=== PATIENT | male | born 1995 | race Caucasian/White ===

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

== ENCOUNTER 2017-02-09 17:22 | Inpatient (IN) ==
[2017-02-09 17:39] LABS: Bilirubin,Urine Negative (Negative); Blood,Urine Negative (Negative); Clarity,Urine Turbid (Clear); Color,Urine Yellow (Yellow); Glucose,Urine (UA) Normal (Normal); Ketones,Urine Negative (Negative); Leukocyte Esterase,Urine Small (Negative); Nitrite,Urine Negative (Negative); PH,Urine 7.5 pH Units (5.0-8.0); Protein,Urine Trace mg/dL (Neg-Trace); Specific Gravity,Urine 1.025 (1.010-1.025); Urobilinogen,Urine Normal (Normal)
--- NOTE | 2017-02-09 17:44 | Emergency Department Note ---
Disposition Clinical Impression: Suicidal ideation Disposition: Admitted As Inpatient Condition: Fair Referrals: NONE,PCP [Primary Care Provider] - Forms: ED Satisfaction Letter Time of Disposition: 19:56 Psych HPI - General Chief Complaint: ED Psychiatric Symptoms Stated Complaint: SI Time Seen by Provider: 02/09/17 17:36 Source: patient, family Limitations: no limitations Nursing Notes Reviewed: Yes Vital Signs Reviewed: Yes - History of Present Illness HPI Narrative: Previous suicidal ideation, depression, anxiety since running out of his Seroquel one month ago. Pt complaint: suicidal ideation, feels depressed, anxiety Onset (ago): day(s) Duration: constant History of similar episodes: Yes Improves with: none Worsens with: none Context: recent drug abuse Alleged intoxication: No Associated Psychiatric Symptoms: depression, suicidal ideation, anxiety Associated symptoms: Reports: denies other symptoms Traumatic symptoms: denies traumatic injury Treatments prior to arrival: none Self harm or harm to others: admits thoughts of self harm - Related Data Previous Rx's Medication Instructions Recorded hydrOXYzine pamoate [HydrOXYzine 25 mg PO TID PRN #90 capsule 10/23/16 Pamoate] Quetiapine Fumarate [Seroquel] 100 mg PO HS #14 tablet 11/23/16 Allergies Allergy/AdvReac Type Severity Reaction Status Date / Time bee venom protein (honey bee) Allergy Anaphylaxis Verified 02/09/17 17:27 shellfish derived Allergy Swelling Verified 11/18/16 13:59 of Lip/Tongue/Throat All systems ED: reviewed and negative except as stated. Constitutional: Reports: as per HPI Eyes: Reports: as per HPI ENT ED: Reports: as per HPI Cardiovascular: Reports: as per HPI Respiratory: Reports: as per HPI Gastrointestinal: Reports: as per HPI Genitourinary: Reports: as per HPI Musculoskeletal: Reports: as per HPI Integumentary: Reports: as per HPI Neurological: Reports: as per HPI Psychiatric: Reports: anxiety, depression, suicidal thoughts Endocrine: Reports: as per HPI Hematological/Lymphatic: Reports: as per HPI Allergic/Immunologic: Reports: as per HPI Past Medical History - Past Medical History Source: patient Medical history: Reports: no medical history Surgical history: Reports: no surgical history Psychiatric history: Reports: depression, prior suicide attempt, schizophrenia, previous psychiatric hospitalization - Social History Smoking Status: Current every day smoker Smokeless Tobacco Status: No Alcohol use: Reports: occasionally Drug use: Reports: cocaine, opiates, marijuana, methamphetamine Physical Exam - General Limitations: no limitations General appearance: alert - Head Head exam: atraumatic - Eye Eye exam: Present: normal appearance, PERRL - ENT ENT exam: normal exam - Neck Neck exam: Present: normal inspection, full ROM - Chest Chest inspection: Present: normal inspection, symmetric chest wall rise - Respiratory Respiratory exam: Present: normal lung sounds bilaterally - Cardiovascular Cardiovascular exam: Present: tachycardia, normal heart sounds - Rectal Exam Rectal exam: Present: deferred - Extremities Exam Extremities exam: Present: normal inspection - Neurological Exam Neurological exam: Present: alert, oriented X3, CN II-XII intact - Psychiatric Psychiatric exam: Present: normal affect, normal mood - Skin Skin exam: Present: warm, dry, intact Course Course Narrative: Patient presents feeling suicidal. I will attempt to clear him medically for behavioral evaluation - Reevaluation(s) Reevaluation #1: cleared medically for 1A eval Vital Signs Temperature 98.2 F 02/09/17 17:27 Pulse Rate 106 02/09/17 17:27 Respiratory Rate 20 02/09/17 17:27 Blood Pressure 125/88 02/09/17 17:27 O2 Sat by Pulse Oximetry 97 02/09/17 17:27 Temperature 98.2 F 02/09/17 17:27 Pulse Rate 106 02/09/17 17:27 Respiratory Rate 20 02/09/17 17:27 Blood Pressure 125/88 02/09/17 17:27 O2 Sat by Pulse Oximetry 97 02/09/17 17:27 Oxygen Delivery Oxygen Delivery Room Air Psych - Lab Data Result diagrams: 02/09/17 17:45 02/09/17 17:45 Lab Results 02/09/17 02/09/17 02/09/17 Range/Units 17:30 17:30 17:45 WBC 8.2 (4.3-11.1) K/mcL RBC 5.59 H (4.19-5.50) M/mcL Hgb 15.6 (12.9-16.9) g/dL Hct 47.7 (37.5-50.1) % MCV 85.3 (83.0-100.0) fL MCH 27.9 L (28.0-33.3) pg MCHC 32.7 (31.6-35.5) g/dL RDW 13.2 (11.5-14.5) % Plt Count 205 (140-400) K/mcL MPV 9.5 (9.4-12.4) fL Immature Gran % 0.2 (0-4) % Seg Neutrophils % 66.8 % Lymphocytes % 24.5 % Monocytes % 5.7 % Eosinophils % 2.3 % Basophils % 0.5 % Neutrophils # 5.5 (1.6-8.9) K/mcL Lymphocytes # 2.0 (0.6-4.6) K/mcL Monocytes # 0.5 (0.0-1.3) K/mcL Eosinophils # 0.2 (0.0-0.6) K/mcL Basophils # 0.0 (0.0-0.2) K/mcL Sodium (136-145) mEq/L Potassium (3.5-4.5) mEq/L Chloride (98-109) mEq/L Carbon Dioxide (19-29) mEq/L BUN (8-26) mg/dL Creatinine (0.72-1.25) mg/dL Est GFR ( Amer) Est GFR (Non-Af Amer) BUN/Creatinine Ratio (6-26) Glucose (70-99) mg/dL Calculated Osmolality (280-300) Calcium (8.6-10.8) mg/dL Total Bilirubin (0.2-1.2) mg/dL AST (5-34) Units/L ALT (0-55) Units/L Alkaline Phosphatase (38-126) Units/L Serum Total Protein (6.0-8.3) g/dL Albumin (3.5-5.0) g/dL Globulin (2.4-3.5) g/dL Albumin/Globulin Ratio (1.1-2.2) Urine Color Yellow (Yellow) Urine Clarity Turbid A (Clear) Urine pH 7.5 (5.0-8.0) pH Units Ur Specific [place] 1.025 (1.010-1.025) Urine Protein Trace (Neg-Trace) mg/dL Urine Glucose (UA) Normal (Normal) mg/dL Urine Ketones Negative (Negative) mg/dL Urine Blood Negative (Negative) Urine Nitrite Negative (Negative) Urine Bilirubin Negative (Negative) Urine Urobilinogen Normal (Normal) mg/dL Ur Leukocyte Esterase Small H (Negative) Urine Microscopic RBC 0-3 (0-3) per hpf Urine Microscopic WBC 5-15 H (0-3) per hpf Ur Squamous Epith Cells Few (None-Few) per lpf Amorphous Sediment Many H (Few) Urine Bacteria Few (None-Few) per hpf Ur Culture Indicated? YES A (NO) Salicylates (15-30) mg/dL Urine Opiates Screen Negative (Gfxyra=505) ng/mL Acetaminophen (10-30) mcg/mL Ur Barbiturates Screen Negative (Magbib=703) ng/mL Ur Phencyclidine Scrn Negative (Cutoff=25) ng/mL Ur Amphetamines Screen Negative (Eijdsh=0046) ng/mL U Benzodiazepines Scrn Negative (Fvxecs=002) ng/mL Urine Cocaine Screen Negative (Cutoff= 300) ng/mL U Marijuana (THC) Screen Positive H (Cutoff = 50) ng/mL Ethyl Alcohol (0-10) mg/dL 02/09/17 Range/Units 17:45 WBC (4.3-11.1) K/mcL RBC (4.19-5.50) M/mcL Hgb (12.9-16.9) g/dL Hct (37.5-50.1) % MCV (83.0-100.0) fL MCH (28.0-33.3) pg MCHC (31.6-35.5) g/dL RDW (11.5-14.5) % Plt Count (140-400) K/mcL MPV (9.4-12.4) fL Immature Gran % (0-4) % Seg Neutrophils % % Lymphocytes % % Monocytes % % Eosinophils % % Basophils % % Neutrophils # (1.6-8.9) K/mcL Lymphocytes # (0.6-4.6) K/mcL Monocytes # (0.0-1.3) K/mcL Eosinophils # (0.0-0.6) K/mcL Basophils # (0.0-0.2) K/mcL Sodium 141 (136-145) mEq/L Potassium 3.9 (3.5-4.5) mEq/L Chloride 108 (98-109) mEq/L Carbon Dioxide 24 (19-29) mEq/L BUN 10 (8-26) mg/dL Creatinine 1.08 (0.72-1.25) mg/dL Est GFR ( Amer) > 60 Est GFR (Non-Af Amer) > 60 BUN/Creatinine Ratio 9 (6-26) Glucose 91 (70-99) mg/dL Calculated Osmolality 291 (280-300) Calcium 9.4 (8.6-10.8) mg/dL Total Bilirubin 0.4 (0.2-1.2) mg/dL AST 13 (5-34) Units/L ALT 13 (0-55) Units/L Alkaline Phosphatase 83 (38-126) Units/L Serum Total Protein 7.2 (6.0-8.3) g/dL Albumin 4.1 (3.5-5.0) g/dL Globulin 3.1 (2.4-3.5) g/dL Albumin/Globulin Ratio 1.3 (1.1-2.2) Urine Color (Yellow) Urine Clarity (Clear) Urine pH (5.0-8.0) pH Units Ur Specific [place] (1.010-1.025) Urine Protein (Neg-Trace) mg/dL Urine Glucose (UA) (Normal) mg/dL Urine Ketones (Negative) mg/dL Urine Blood (Negative) Urine Nitrite (Negative) Urine Bilirubin (Negative) Urine Urobilinogen (Normal) mg/dL Ur Leukocyte Esterase (Negative) Urine Microscopic RBC (0-3) per hpf Urine Microscopic WBC (0-3) per hpf Ur Squamous Epith Cells (None-Few) per lpf Amorphous Sediment (Few) Urine Bacteria (None-Few) per hpf Ur Culture Indicated? (NO) Salicylates < 5.0 L (15-30) mg/dL Urine Opiates Screen (Xyaosp=071) ng/mL Acetaminophen < 1.0 L (10-30) mcg/mL Ur Barbiturates Screen (Khdetb=366) ng/mL Ur Phencyclidine Scrn (Cutoff=25) ng/mL Ur Amphetamines Screen (Ikxvhr=0425) ng/mL U Benzodiazepines Scrn (Pocoad=436) ng/mL Urine Cocaine Screen (Cutoff= 300) ng/mL U Marijuana (THC) Screen (Cutoff = 50) ng/mL Ethyl Alcohol < 10 (0-10) mg/dL Psychiatric Medical Clearance - Medical Clearance Checklist Medical History: Acute anxiety (Acute) Suicidal ideation (Acute) Multiple lacerations (Acute) Depression (Chronic) Marijuana abuse (Acute) Anxiety (Acute) Suicidal ideation (Acute) Depression (Acute) Polysubstance abuse (Acute) Polysubstance dependence including opioid type drug, episodic abuse (Acute) Suicide attempt by beta mark overdose (Acute) Overdose (Acute) Bradycardia (Acute) Suicide attempt by multiple drug overdose (Acute) Beta mark toxicity (Acute) Acute kidney injury (Acute) Depressive disorder, not elsewhere classified (Acute) Polysubstance abuse (Chronic) Encounter for removal of sutures (Inactive) Laceration (Inactive) Pharyngitis (Inactive) Pharyngitis (Inactive) Self-mutilation (Inactive) URI (upper respiratory infection) (Inactive) No Social History Section defined Current Vitals: Last Vital Signs Temp 98.2 F 02/09/17 17:27 Pulse 106 02/09/17 17:27 Resp 20 02/09/17 17:27 BP 125/88 02/09/17 17:27 Pulse Ox 97 02/09/17 17:27 Psychiatric Lab Panel: Drug Levels and Toxicity 02/09/17 02/09/17 17:30 17:45 Urine Opiates Screen Negative Acetaminophen < 1.0 L Ur Barbiturates Screen Negative Ur Phencyclidine Scrn Negative Ur Amphetamines Screen Negative U Benzodiazepines Scrn Negative Urine Cocaine Screen Negative U Marijuana (THC) Screen Positive H Ethyl Alcohol < 10 Abnormal Labs: Abnormal lab results RBC 5.59 M/mcL (4.19-5.50) H 02/09/17 17:45 MCH 27.9 pg (28.0-33.3) L 02/09/17 17:45 Urine Clarity Turbid (Clear) A 02/09/17 17:30 Ur Leukocyte Esterase Small (Negative) H 02/09/17 17:30 Urine Microscopic WBC 5-15 per hpf (0-3) H 02/09/17 17:30 Amorphous Sediment Many (Few) H 02/09/17 17:30 Ur Culture Indicated? YES (NO) A 02/09/17 17:30 Salicylates < 5.0 mg/dL (15-30) L 02/09/17 17:45 Acetaminophen < 1.0 mcg/mL (10-30) L 02/09/17 17:45 U Marijuana (THC) Screen Positive ng/mL (Cutoff = 50) H 02/09/17 17:30 Statement of Medical Clearance: I have evaluated the patient, reviewed diagnostic information, and certify that the patient's medical condition is sufficiently stable that transfer to the psychiatric unit does not pose a significant risk of deterioration.
[2017-02-09 17:48] LABS: Amphetamine Screen,Urine Negative ng/mL (Cutoff=1000); Barbiturate Screen,Urine Negative ng/mL (Cutoff=200); Benzodiazepines Screen,Urine Negative ng/mL (Cutoff=200); Cannabinoid Screen,Urine Positive ng/mL (Cutoff = 50); Cocaine Screen,Urine Negative ng/mL (Cutoff= 300); Opiate Screen,Urine Negative ng/mL (Cutoff=300); Phencyclidine Screen,Urine Negative ng/mL (Cutoff=25)
[2017-02-09 17:49] LABS: Basophils % 0.5 %; Eosinophils # 0.2 K/mcL (0.0-0.6); Eosinophils % 2.3 %; Hematocrit 47.7 % (37.5-50.1); Hemoglobin 15.6 g/dL (12.9-16.9); Immature Granulocytes % 0.2 % (0-4); Lymphocytes % 24.5 %; Mean Corpuscular HGB Conc 32.7 g/dL (31.6-35.5); Mean Corpuscular Hemoglobin 27.9 pg (28.0-33.3); Mean Corpuscular Volume 85.3 fL (83.0-100.0); Mean Platelet Volume 9.5 fL (9.4-12.4); Monocytes # 0.5 K/mcL (0.0-1.3); Monocytes % 5.7 %; Neutrophils # 5.5 K/mcL (1.6-8.9); Platelet Count 205 K/mcL (140-400); Red Blood Count 5.59 M/mcL (4.19-5.50); Red Cell Distribution Width 13.2 % (11.5-14.5); Segmented Neutrophils % 66.8 %
[2017-02-09 17:50] LABS: Amorphous Sediment,Urine Many (Few); Squamous Epithelial Cell,Urine Few per lpf (None-Few)
[2017-02-09 17:52] LABS: RBC,Urine 0-3 per hpf (0-3)
[2017-02-09 17:53] LABS: Bacteria,Urine Few per hpf (None-Few)
[2017-02-09 18:03] LABS: Alanine Aminotransferase 13 Units/L (0-55); Albumin 4.1 g/dL (3.5-5.0); Albumin/Globulin Ratio 1.3 (1.1-2.2); Alkaline Phosphatase 83 Units/L (38-126); Aspartate Amino Transferase 13 Units/L (5-34); BUN/Creatinine Ratio 9 (6-26); Bilirubin,Total 0.4 mg/dL (0.2-1.2); Blood Urea Nitrogen 10 mg/dL (8-26); Calcium 9.4 mg/dL (8.6-10.8); Carbon Dioxide 24 mEq/L (19-29); Chloride 108 mEq/L (98-109); Globulin 3.1 g/dL (2.4-3.5); Glucose 91 mg/dL (70-99); Osmolality,Calculated 291 (280-300); Potassium 3.9 mEq/L (3.5-4.5); Sodium 141 mEq/L (136-145); Total Protein 7.2 g/dL (6.0-8.3); eGFR For African Americans > 60; eGFR For Non-African Americans > 60
[2017-02-09 18:04] LABS: Acetaminophen < 1.0 mcg/mL (10-30); Ethanol < 10 mg/dL (0-10); Salicylate < 5.0 mg/dL (15-30)
[2017-02-09] MEDS ORDERED: *HR* LORazepam 2 MG/ML VIAL IM PRN (20:27)
[2017-02-09] MEDS ORDERED: hydrOXYzine pamoate 25 MG CAPSULE PO PRN (20:27)
[2017-02-09] MEDS ORDERED: *HR* LORazepam 1 MG TABLET PO PRN (20:27)
[2017-02-09] MEDS ORDERED: Mag Hydrox/Al Hydrox/Simeth 30 ML UDC PO PRN (20:27)
[2017-02-09] MEDS ORDERED: Haloperidol Lactate 5 MG/ML VIAL IM PRN (20:27)
[2017-02-09] MEDS ORDERED: Acetaminophen 325 MG TABLET PO PRN (20:27)
[2017-02-09] MEDS ORDERED: MOM Conc 10 ML UD.LIQ PO PRN (20:27)
[2017-02-09] MEDS: traZODone 50 MG TABLET PO PRN (20:53)
--- NOTE | 2017-02-10 11:17 | Psychiatry History & Physical ---
Date of Encounter: 02/10/17 Time of Encounter: 11:00 History of Present Illness Patient Stated Chief Complaint: Suicidal ideation Medicare Admission Attestation: For traditional Medicare patients the provided hospital inpatient services are reasonable and necessary and in the case of services not specified as inpatient -only under 42 CFR 419.22 (n), that they are appropriately provided as inpatient services in accordance 42 CFR 412.3. For Critical Access Hospital the patient may reasonably be expected to be discharged or transferred to a hospital within 96 hours after admission to the Critical Access Hospital. Admitted From: Emergency Dept History of Present Illness: Mr. Mcneal is a 21 year old male admitted from the emergency department for evaluation suicidal ideation. Patient had history of depression and polysubstance abuse and has been out of his medication for the past several months and he reported mood swings depression or irritability and suicidal thoughts and came to hospital for help. Patient had a previous admission in October and November of this year with similar presentation. His tox screen was positive for THC and admitted to using on and off. He complained of feeling anxious and irritable and unable to keep a job but he would like to go back to school to learn web design. Past Med Surg Social Fam HX - Past Medical History Medical history: no medical history - Past Psychiatric History Psychiatric history: Reports: anxiety, depression, previous psychiatric hospitalization - Past Surgical History Surgical History: no surgical history - Social History Smoking Status: Current every day smoker Smokeless Tobacco Status: No Alcohol use: occasionally Drug use: cocaine, opiates, marijuana, methamphetamine - Family History Mother History Unknown: Yes Father Hx Family Psychosocial Disorders: Yes (commited suicide) Medications & Allergies No Known Home Drugs 02/09/17 [History] 3 Allergy/AdvReac Type Severity Reaction Status Date / Time bee venom protein (honey bee) Allergy Anaphylaxis Verified 02/09/17 17:27 shellfish derived Allergy Swelling Verified 11/18/16 13:59 of Lip/Tongue/Throat Review of Systems Psychiatric: Reports: anxiety, abnormal sleep pattern, suicidal ideation, irritability Mental Status Exam Patient orientation: Yes Person, Yes Time, Yes Place Level of alertness: Alert Patient appearance: Appropriate, Well Groomed Behavior: calm, cooperative, anxious Psychomotor activity: Normal Eye contact: Maintains Eye Contact Mood description: Euthymic/stable Affect description: congruent with mood, full range Speech pattern: Normal rate, Normal rhythm, Normal tone Speech volume: Normal Thought process: Linear, Goal Oriented Thought content: Yes Suicidal ideation, No Homicidal ideation, No Overt delusions Perceptual disturbances: No Auditory hallucinations, No Visual hallucinations Attention span: Capable of Focused Attention Memory description: Grossly Intact Patient reliability: Reliable Historian Intelligence estimate: Average Judgment: Limited Insight: Partial Results - Vital Signs Vital signs: Temp Pulse Resp BP Pulse Ox 98.2 F 68 16 123/82 97 02/10/17 09:00 02/10/17 09:00 02/10/17 09:00 02/10/17 09:00 02/09/17 17:27 - Labs Labs: Laboratory Last Values WBC 8.2 K/mcL (4.3-11.1) 02/09/17 17:45 RBC 5.59 M/mcL (4.19-5.50) H 02/09/17 17:45 Hgb 15.6 g/dL (12.9-16.9) 02/09/17 17:45 Hct 47.7 % (37.5-50.1) 02/09/17 17:45 MCV 85.3 fL (83.0-100.0) 02/09/17 17:45 MCH 27.9 pg (28.0-33.3) L 02/09/17 17:45 MCHC 32.7 g/dL (31.6-35.5) 02/09/17 17:45 RDW 13.2 % (11.5-14.5) 02/09/17 17:45 Plt Count 205 K/mcL (140-400) 02/09/17 17:45 MPV 9.5 fL (9.4-12.4) 02/09/17 17:45 Immature Gran % 0.2 % (0-4) 02/09/17 17:45 Seg Neutrophils % 66.8 % 02/09/17 17:45 Lymphocytes % 24.5 % 02/09/17 17:45 Monocytes % 5.7 % 02/09/17 17:45 Eosinophils % 2.3 % 02/09/17 17:45 Basophils % 0.5 % 02/09/17 17:45 Neutrophils # 5.5 K/mcL (1.6-8.9) 02/09/17 17:45 Lymphocytes # 2.0 K/mcL (0.6-4.6) 09/28/17 17:45 Monocytes # 0.5 K/mcL (0.0-1.3) 02/09/17 17:45 Eosinophils # 0.2 K/mcL (0.0-0.6) 02/09/17 17:45 Basophils # 0.0 K/mcL (0.0-0.2) 02/09/17 17:45 Sodium 141 mEq/L (136-145) 02/09/17 17:45 Potassium 3.9 mEq/L (3.5-4.5) 02/09/17 17:45 Chloride 108 mEq/L (98-109) 02/09/17 17:45 Carbon Dioxide 24 mEq/L (19-29) 02/09/17 17:45 BUN 10 mg/dL (8-26) 02/09/17 17:45 Creatinine 1.08 mg/dL (0.72-1.25) 02/09/17 17:45 Est GFR ( Amer) > 60 02/09/17 17:45 Est GFR (Non-Af Amer) > 60 02/09/17 17:45 BUN/Creatinine Ratio 9 (6-26) 02/09/17 17:45 Glucose 91 mg/dL (70-99) 02/09/17 17:45 Calculated Osmolality 291 (280-300) 02/09/17 17:45 Calcium 9.4 mg/dL (8.6-10.8) 02/09/17 17:45 Total Bilirubin 0.4 mg/dL (0.2-1.2) 02/09/17 17:45 AST 13 Units/L (5-34) 02/09/17 17:45 ALT 13 Units/L (0-55) 02/09/17 17:45 Alkaline Phosphatase 83 Units/L (38-126) 02/09/17 17:45 Serum Total Protein 7.2 g/dL (6.0-8.3) 02/09/17 17:45 Albumin 4.1 g/dL (3.5-5.0) 02/09/17 17:45 Globulin 3.1 g/dL (2.4-3.5) 02/09/17 17:45 Albumin/Globulin Ratio 1.3 (1.1-2.2) 02/09/17 17:45 Urine Color Yellow (Yellow) 02/09/17 17:30 Urine Clarity Turbid (Clear) A 02/09/17 17:30 Urine pH 7.5 pH Units (5.0-8.0) 02/09/17 17:30 Ur Specific [place] 1.025 (1.010-1.025) 02/09/17 17:30 Urine Protein Trace mg/dL (Neg-Trace) 02/09/17 17:30 Urine Glucose (UA) Normal mg/dL (Normal) 02/09/17 17:30 Urine Ketones Negative mg/dL (Negative) 02/09/17 17:30 Urine Blood Negative (Negative) 02/09/17 17:30 Urine Nitrite Negative (Negative) 02/09/17 17:30 Urine Bilirubin Negative (Negative) 02/09/17 17:30 Urine Urobilinogen Normal mg/dL (Normal) 02/09/17 17:30 Ur Leukocyte Esterase Small (Negative) H 02/09/17 17:30 Urine Microscopic RBC 0-3 per hpf (0-3) 02/09/17 17:30 Urine Microscopic WBC 5-15 per hpf (0-3) H 02/09/17 17:30 Ur Squamous Epith Cells Few per lpf (None-Few) 02/09/17 17:30 Amorphous Sediment Many (Few) H 02/09/17 17:30 Urine Bacteria Few per hpf (None-Few) 02/09/17 17:30 Ur Culture Indicated? YES (NO) A 02/09/17 17:30 Salicylates < 5.0 mg/dL (15-30) L 02/09/17 17:45 Urine Opiates Screen Negative ng/mL (Riixft=625) 02/09/17 17:30 Acetaminophen < 1.0 mcg/mL (10-30) L 02/09/17 17:45 Ur Barbiturates Screen Negative ng/mL (Nnwxfp=128) 02/09/17 17:30 Ur Phencyclidine Scrn Negative ng/mL (Cutoff=25) 02/09/17 17:30 Ur Amphetamines Screen Negative ng/mL (Mjzohi=7577) 02/09/17 17:30 U Benzodiazepines Scrn Negative ng/mL (Uhlesg=169) 02/09/17 17:30 Urine Cocaine Screen Negative ng/mL (Cutoff= 300) 02/09/17 17:30 U Marijuana (THC) Screen Positive ng/mL (Cutoff = 50) H 02/09/17 17:30 Ethyl Alcohol < 10 mg/dL (0-10) 02/09/17 17:45 Assessment and Plan (1) Depression Current visit: No Status: Chronic Plan: Admit inpatient for safety and stabilization, Close observation, Suicide Precautions per unit protocol, Encourage participation in unit milieu, Group Therapy, Monitor sleep, Monitor appetite Additional Plan: We will start patient on Seroquel 100 mg at at bedtime. Also he will start propanolol 20 mg twice a day as needed for any anxiety. Qualifiers: Depression Type: major depressive disorder Major depression recurrence: recurrent Active/Remission status: currently active Major depression episode severity: severe Psychotic features: without psychotic features Qualified Code(s): F33.2 - Major depressive disorder, recurrent severe without psychotic features
--- NOTE | 2017-02-11 11:04 | Psychiatry Progress Note ---
Date of Encounter: 02/11/17 Time of Encounter: 11:00 Subjective Interval history: Patient is here for follow-up. Staff reports he slept well compliant with medication and interacting with staff and peers. He reported that he used propranolol twice and medication is helpful and not sedating him, he is excited about visits from his girlfriend today. Denied any suicidal ideation. Motivated to go to school for computers. Review of Systems Psychiatric: Reports: anxiety, abnormal sleep pattern, suicidal ideation, irritability Objective: Exam Patient orientation: Yes Person, Yes Time, Yes Place Level of alertness: Alert Patient appearance: Appropriate, Well Groomed Behavior: calm, cooperative, guarded Psychomotor activity: Normal Eye contact: Maintains Eye Contact Mood description: Euthymic/stable Affect description: congruent with mood, full range Speech pattern: Normal rate, Normal rhythm, Normal tone Speech volume: Normal Thought process: Linear, Goal Oriented Thought content: No Suicidal ideation, No Homicidal ideation, No Overt delusions Perceptual disturbances: No Auditory hallucinations, No Visual hallucinations Judgment: Fair Insight: Partial Results - Vital Signs Vital Signs: Temp Pulse Resp BP Pulse Ox 97.6 F 38 16 120/62 97 02/11/17 09:00 02/11/17 09:00 02/11/17 09:00 02/11/17 09:00 02/09/17 17:27 Assessment and Plan (1) Depression Current visit: No Status: Chronic Plan: Continue hospitalization, Close observation, Suicide Precautions per unit protocol, Encourage participation in unit milieu, Group Therapy, Monitor sleep, Monitor appetite Qualifiers: Depression Type: major depressive disorder Major depression recurrence: recurrent Active/Remission status: currently active Major depression episode severity: severe Psychotic features: without psychotic features Qualified Code(s): F33.2 - Major depressive disorder, recurrent severe without psychotic features Consult Discharge Plan - Plan Referrals: [facility] [Outside] - 03/08/17 1:00 pm (The above appointment is with Maylin Spain Daily, for outpatient psychiatric assessment and medication management services. Please arrive 30 minutes early to complete paperwork. Please bring your photo ID and medication list. This is the first available appointment. You may contact the office regularly to check for cancellations that may allow you to be seen sooner. Additionally, the new case sealer assigned to you will contact you directly to schedule your intake appointment for case management and mental health counseling services. )
--- NOTE | 2017-02-12 11:35 | Psychiatry Progress Note ---
Date of Encounter: 02/12/17 Time of Encounter: 11:33 Subjective Interval history: Patient seen for follow-up. He reports feeling more relaxed, his sleep is improved. He denied any suicidal thoughts or panic attacks. Responded well to propranolol within 15-20 minutes. This talk about future plans to go to school and apply for business and financial counsel for college. He plans to stay off drugs and alcohol. His grandfather is good support. Review of Systems Psychiatric: Reports: anxiety, abnormal sleep pattern, suicidal ideation, irritability Objective: Exam Patient orientation: Yes Person, Yes Time, Yes Place Level of alertness: Alert Patient appearance: Appropriate, Well Groomed Behavior: calm, cooperative, anxious Psychomotor activity: Normal Eye contact: Maintains Eye Contact Mood description: Euthymic/stable Affect description: congruent with mood, full range Speech pattern: Normal rate, Normal rhythm, Normal tone Speech volume: Normal Thought process: Linear, Goal Oriented Thought content: No Suicidal ideation, No Homicidal ideation, No Overt delusions Perceptual disturbances: No Auditory hallucinations, No Visual hallucinations Judgment: Fair Insight: Partial Results - Vital Signs Vital Signs: Temp Pulse Resp BP Pulse Ox 97.2 F L 66 16 131/80 97 02/12/17 08:29 02/12/17 08:29 02/12/17 08:29 02/12/17 08:29 02/09/17 17:27 Assessment and Plan (1) Depression Current visit: No Status: Chronic Plan: Continue hospitalization, Close observation, Suicide Precautions per unit protocol, Encourage participation in unit milieu, Group Therapy, Monitor sleep, Monitor appetite Qualifiers: Depression Type: major depressive disorder Major depression recurrence: recurrent Active/Remission status: currently active Major depression episode severity: severe Psychotic features: without psychotic features Qualified Code(s): F33.2 - Major depressive disorder, recurrent severe without psychotic features Consult Discharge Plan - Plan Referrals: [facility] [Outside] - 03/08/17 1:00 pm (The above appointment is with Maylin Spain Daily, for outpatient psychiatric assessment and medication management services. Please arrive 30 minutes early to complete paperwork. Please bring your photo ID and medication list. This is the first available appointment. You may contact the office regularly to check for cancellations that may allow you to be seen sooner. Additionally, the new counseling case manager assigned to you will contact you directly to schedule your intake appointment for case management and mental health counseling services. )
[2017-02-12] MEDS: traZODone 50 MG TABLET PO PRN (20:51)
[2017-02-13 09:07] VITALS: BP 117/76
--- NOTE | 2017-02-13 10:49 | Discharge Summary ---
Date of Encounter: 02/13/17 Time of Encounter: 10:20 Diagnosis - Discharge Diagnosis (1) Suicidal ideation Status: Resolved Comments: Patient not in danger to self/others at present. (2) Depression Status: Chronic Comments: Patient is stable, baseline, not endorsing any depressive s/s today. Qualifiers: Depression Type: major depressive disorder Major depression recurrence: recurrent Active/Remission status: currently active Major depression episode severity: severe Psychotic features: without psychotic features Qualified Code(s): F33.2 - Major depressive disorder, recurrent severe without psychotic features (3) Anxiety Status: Chronic Comments: Improved with medication. (4) Marijuana abuse Status: Acute Comments: Education given , he is encouraged to remain sber and to follow up his appointments. Medications - Discharge Medications Prescriptions: Propranolol [Inderal] 20 mg PO BID PRN #60 tablet PRN Reason: Anxiety Quetiapine Fumarate [Seroquel] 100 mg PO HS #30 tablet Propranolol [Inderal] 20 mg PO BID PRN #60 tablet 02/13/17 [Rx] Quetiapine Fumarate [Seroquel] 100 mg PO HS #30 tablet 02/13/17 [Rx] 3 Allergy/AdvReac Type Severity Reaction Status Date / Time bee venom protein (honey bee) Allergy Anaphylaxis Verified 02/09/17 17:27 shellfish derived Allergy Swelling Verified 11/18/16 13:59 of Lip/Tongue/Throat Provider Date of admission: 02/09/17 20:01 Primary care physician: PCP NONE Assessment and Plan - Patient/Caregiver Discharge Instructions Activity: resume usual activities as tolerated Diet: regular diet - Follow up Plan Follow up with: [facility] [Outside] - 03/08/17 1:00 pm (The above appointment is with Maylin Funes, for outpatient psychiatric assessment and medication management services. Please arrive 30 minutes early to complete paperwork. Please bring your photo ID and medication list. This is the first available appointment. You may contact the office regularly to check for cancellations that may allow you to be seen sooner. Additionally, the new family preservation caseworker assigned to you will contact you directly to schedule your intake appointment for case management and mental health counseling services. ) Overall status at discharge: Stable Disposition: Home, Self-Care Hospital Course Hospital course: Mr. Mcneal is a 21 year old male who was admitted to for depression and suicidal ideas and has been without medications for 2 months as missed his appointment and had no medication. As per him when is on medication he is fine and not depress and not suicidal, he states if he doesnot sleep he gets depress. he has been on antidepresants in past and they donot help him. he feels seroquel and propranolol helps him a lot, denies side effects. he live with his grandfather and has good relationship with him, he has been sober from marijuana since november till 2 weeks ago he went to visit his mom in [facility]. he denies any since , denies other drugs since November of this year. 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 Time spent discussing smoking cessation with patient: 3 to 10 minutes Does patient wish to continue nicotine replacement upon disc: No (he has not smoked since here.) - Time Spent with Patient Total time spent providing and/or coordinating discharge services: Less than 30 minutes Quality - Multiple Antipsychotics Patient discharged on 2 or more antipsychotic medications: No Procedures - Procedures Procedures: Medication Management, Crisis Stabilization, Supportive Therapy, Group Therapy Mental Status Exam - Mental Status Exam Patient orientation: Yes Person, Yes Time, Yes Place Level of alertness: Alert Patient appearance: Appropriate Behavior: calm, cooperative Psychomotor activity: Normal Eye contact: Maintains Eye Contact Mood description: Euthymic/stable Affect description: congruent with mood Speech pattern: Normal rate, Normal rhythm, Normal tone, Coherent Speech Volume: Normal Thought process: Intact Thought Content: Yes Intact Judgment: Good Insight: Full
== END 2017-02-13 15:40 | disposition home or self-care (01) | DRG 751 ==
LOC: EMEROO 17:22 → 1ANU 20:01 → SUATTDRO 20:01 → 1ANU 20:10
PROVIDERS: ADMIT Psychiatry & Neurology Psychiatry; ATTEND Psychiatry & Neurology Psychiatry

== ENCOUNTER 2017-06-29 11:41 | Inpatient (IN) ==
[2017-06-29] MEDS ORDERED: 0.9 % Sodium Chloride 1,000 ML IVC ONE (11:54)
--- NOTE | 2017-06-29 12:07 | Emergency Department Note ---
Disposition Clinical Impression: Intentional overdose of beta-adrenergic blocking drug Qualifiers: Encounter type: subsequent encounter Qualified Code(s): T44.7X2D - Poisoning by beta-adrenoreceptor antagonists, intentional self-harm, subsequent encounter Disposition: Admitted As Inpatient Condition: Fair Time of Disposition: 13:27 Psych HPI - General Chief Complaint: ED Psychiatric Symptoms Stated Complaint: Took too many pills Time Seen by Provider: 06/29/17 11:53 Source: patient Nursing Notes Reviewed: Yes Vital Signs Reviewed: Yes - History of Present Illness HPI Narrative: 22-year-old male complains of ingestion of 2920 mg pills of propranolol 20 minutes ago. Patient states he was upset and angry after he went to work today. He states that his coworkers were smacked talking against him and so he took the pills because he was angry. Patient is on propanolol for anxiety one tablet twice a day as needed. Patient states he has overdosed on propanolol and Seroquel in the past and was hospitalized for both because it was an intentional suicide attempt. - Related Data Home Medications Medication Instructions Recorded Confirmed FLUoxetine HCl [Prozac] 40 mg PO DAILY 06/29/17 06/29/17 Quetiapine Fumarate [Seroquel] 350 mg PO HS 06/29/17 06/29/17 Previous Rx's Medication Instructions Recorded Propranolol [Inderal] 20 mg PO BID PRN #60 tablet 02/13/17 Allergies Allergy/AdvReac Type Severity Reaction Status Date / Time bee venom protein (honey bee) Allergy Anaphylaxis Verified 04/25/17 15:27 shellfish derived Allergy Swelling Verified 04/25/17 15:27 of Lip/Tongue/Throat All systems ED: reviewed and negative except as stated. Review of Systems: As Per HPI Constitutional: Denies: fever, chills Eyes: Denies: eye pain, vision change ENT ED: Denies: congestion Cardiovascular: Denies: chest pain, palpitations Respiratory: Denies: cough, dyspnea, wheezes Gastrointestinal: Reports: nausea. Denies: abdominal pain, vomiting Past Medical History - Past Medical History Attestation: Yes The following information was validated with the patient. Source: patient, nursing notes reviewed Medical history: Reports: no medical history Surgical history: Reports: no surgical history Psychiatric history: Reports: anxiety, depression, PTSD, prior suicide attempt, previous psychiatric hospitalization - Social History Smoking Status: Current every day smoker Smokeless Tobacco Status: No Alcohol use: Reports: none Drug use: Reports: marijuana Physical Exam Vital Signs Temperature 98.8 F 06/29/17 11:45 Pulse Rate 67 06/29/17 11:45 Respiratory Rate 18 06/29/17 11:45 Blood Pressure 121/82 06/29/17 11:45 O2 Sat by Pulse Oximetry 99 06/29/17 11:45 Temperature 98.8 F 06/29/17 11:45 Pulse Rate 67 06/29/17 11:45 Respiratory Rate 18 06/29/17 11:45 Blood Pressure 121/82 06/29/17 11:45 O2 Sat by Pulse Oximetry 99 06/29/17 11:45 Oxygen Delivery Oxygen Delivery Room Air CONSTITUTIONAL: Alert and oriented X3, well-nourished, well appearing, in no apparent distress HEAD: Normocephalic; atraumatic. EYES: PERRL, no scleral icterus. NOSE: The nose is normal in appearance without rhinorrhea RESP: Normal chest excursion with respiration; breath sounds clear and equal bilaterally; no wheezes, rhonchi, or rales CARD: Regular rhythm, without murmurs, rub or gallop ABD: Non-distended; non-tender, soft,without rigidity, rebound or guarding SKIN: Normal for age and race; warm and dry; no apparent lesions - General Limitations: no limitations General appearance: alert Course - Reevaluation(s) Reevaluation #1: NG tube ordered, 50 g activated charcoal ordered, patient placed on a monitor, 2 IV peripheral lines have been started one in each upper extremity, normal saline 1 L is running. Patient is under observation. NG tube order placed Time: 12:21 Reevaluation #2: I have been monitoring the patient's condition from my station as he is right in front of me. Patient has been maintaining stable vital signs. Dr. Chapa , pulmonology/benefits coordinator drop by to check on the patient. He states that patient is doing well and should be able to eat. He also states patient should be started on something for reflux. Her diet has been placed for the patient, and 80 mg Protonix IV has been ordered. Current vital signs heart rate 61, respirations 18, O2 sat 98 on room air, blood pressure 126/83. Patient has been an ED hold since admission to the ICU due to lack of bed space. Time: 15:45 Reevaluation #3: Patient has been transported to the ICU for further observation in stable condition. Time: 18:51 - Consultations Consultation #1: Poison control was contacted. Recommendations from poison control was activated charcoal and hold glucagon until patient's heart rate dropped below 50. Time: 12:00 Vital Signs Temperature 98.8 F 06/29/17 11:45 Pulse Rate 67 06/29/17 11:45 Respiratory Rate 18 06/29/17 11:45 Blood Pressure 121/82 06/29/17 11:45 O2 Sat by Pulse Oximetry 99 06/29/17 11:45 Temperature 98.8 F 06/29/17 11:45 Pulse Rate 63 06/29/17 18:23 Respiratory Rate 18 06/29/17 18:24 Blood Pressure 116/64 06/29/17 18:24 O2 Sat by Pulse Oximetry 98 06/29/17 15:30 Oxygen Delivery Oxygen Delivery Room Air Psych - MDM Narrative Medical decision making narrative: Intentional overdose of propanolol total of 580 mg (29, 20 mg tablets). This is his third intentional overdose. Patient being medically managed for his overdose. It IV normal saline is started to peripheral IV lines have been initiated, patient has been administered activated charcoal per request from poison control of 50 g. Patient is started on a glucagon 3 mg IV. Patient's labs show no abnormalities at this time. Patient's doses 109. EKG showed no signs of ischemia but has T-wave inversion in V3 and incomplete right bundle branch block, but no previous EKG for comparison. Current plan is for patient to be admitted to the ICU. After patient has been medically cleared he will receive psychiatric evaluation by 1ABeck Chapa the benefits coordinator has accepted patient for admission to the ICU at 1321 hrs. patient currently in stable condition. - Lab Data Lab results reviewed: Yes I reviewed the patient's lab results. Lab results narrative: Short CBC 06/29/17 Range/Units 12:05 WBC 6.2 (4.3-11.1) K/mcL Hgb 16.3 (12.9-16.9) g/dL Hct 49.4 (37.5-50.1) % Plt Count 242 (140-400) K/mcL Neutrophils # 3.4 (1.6-8.9) K/mcL BMP 06/29/17 Range/Units 11:54 Sodium 140 (136-145) mEq/L Potassium 4.3 (3.5-5.1) mEq/L Chloride 105 (98-107) mEq/L Carbon Dioxide 27 (23-29) mEq/L BUN 14 (6-20) mg/dL Creatinine 1.12 (0.70-1.30) mg/dL Glucose 109 H (70-105) mg/dL Calcium 9.9 (8.6-10.3) mg/dL Liver Function 06/29/17 Range/Units 11:54 Total Bilirubin 0.6 (0.3-1.0) mg/dL Direct Bilirubin 0.1 (0.0-0.2) mg/dL AST 23 (13-39) Units/L ALT 28 (7-52) Units/L Alkaline Phosphatase 82 (34-104) Units/L Albumin 4.8 (3.5-5.7) g/dL Urine 06/29/17 Range/Units 12:08 Urine Color Yellow (Yellow) Urine Clarity Clear (Clear) Urine pH 6.5 (5.0-8.0) pH Units Ur Specific [place] 1.028 H (1.010-1.025) Urine Protein Negative (Neg-Trace) mg/dL Urine Glucose (UA) Normal (Normal) mg/dL Result diagrams: 06/29/17 12:05 06/29/17 11:54 Lab Results 06/29/17 06/29/17 06/29/17 Range/Units 11:54 12:05 12:08 WBC 6.2 (4.3-11.1) K/mcL RBC 5.77 H (4.19-5.50) M/mcL Hgb 16.3 (12.9-16.9) g/dL Hct 49.4 (37.5-50.1) % MCV 85.6 (83.0-100.0) fL MCH 28.2 (28.0-33.3) pg MCHC 33.0 (31.6-35.5) g/dL RDW 12.8 (11.5-14.5) % Plt Count 242 (140-400) K/mcL MPV 9.7 (9.4-12.4) fL Immature Gran % 0.2 (0-4) % Seg Neutrophils % 53.8 % Lymphocytes % 34.6 % Monocytes % 6.4 % Eosinophils % 4.2 % Basophils % 0.8 % Neutrophils # 3.4 (1.6-8.9) K/mcL Lymphocytes # 2.2 (0.6-4.6) K/mcL Monocytes # 0.4 (0.0-1.3) K/mcL Eosinophils # 0.3 (0.0-0.6) K/mcL Basophils # 0.1 (0.0-0.2) K/mcL Sodium 140 (136-145) mEq/L Potassium 4.3 (3.5-5.1) mEq/L Chloride 105 (98-107) mEq/L Carbon Dioxide 27 (23-29) mEq/L BUN 14 (6-20) mg/dL Creatinine 1.12 (0.70-1.30) mg/dL Est GFR ( Amer) > 60 (> 60) Est GFR (Non-Af Amer) > 60 (> 60) BUN/Creatinine Ratio 13 (6-26) Glucose 109 H (70-105) mg/dL Calculated Osmolality 291 (280-300) Calcium 9.9 (8.6-10.3) mg/dL Total Bilirubin 0.6 (0.3-1.0) mg/dL Direct Bilirubin 0.1 (0.0-0.2) mg/dL Indirect Bilirubin 0.5 (0.0-1.2) mg/dL AST 23 (13-39) Units/L ALT 28 (7-52) Units/L Alkaline Phosphatase 82 (34-104) Units/L Serum Total Protein 7.4 (6.4-8.9) g/dL Albumin 4.8 (3.5-5.7) g/dL Globulin 2.6 (2.4-3.5) g/dL Albumin/Globulin Ratio 1.8 (1.1-2.2) TSH 1.879 (0.340-5.600) mcIU/mL Urine Color Yellow (Yellow) Urine Clarity Clear (Clear) Urine pH 6.5 (5.0-8.0) pH Units Ur Specific [place] 1.028 H (1.010-1.025) Urine Protein Negative (Neg-Trace) mg/dL Urine Glucose (UA) Normal (Normal) mg/dL Urine Ketones Negative (Negative) mg/dL Urine Blood Negative (Negative) Urine Nitrite Negative (Negative) Urine Bilirubin Negative (Negative) Urine Urobilinogen Normal (Normal) mg/dL Ur Leukocyte Esterase Negative (Negative) Salicylates < 5.0 L (15.0-30.0) mg/dL Urine Opiates Screen (Azlwme=651) ng/mL Acetaminophen < 1.0 L (10-30) mcg/mL Ur Barbiturates Screen (Rrqjky=189) ng/mL Ur Phencyclidine Scrn (Cutoff=25) ng/mL Ur Amphetamines Screen (Ojskba=6469) ng/mL U Benzodiazepines Scrn (Aayozh=032) ng/mL Urine Cocaine Screen (Cutoff= 300) ng/mL U Marijuana (THC) Screen (Cutoff = 50) ng/mL Ethyl Alcohol < 10 (0-10) mg/dL 06/29/17 Range/Units 12:08 WBC (4.3-11.1) K/mcL RBC (4.19-5.50) M/mcL Hgb (12.9-16.9) g/dL Hct (37.5-50.1) % MCV (83.0-100.0) fL MCH (28.0-33.3) pg MCHC (31.6-35.5) g/dL RDW (11.5-14.5) % Plt Count (140-400) K/mcL MPV (9.4-12.4) fL Immature Gran % (0-4) % Seg Neutrophils % % Lymphocytes % % Monocytes % % Eosinophils % % Basophils % % Neutrophils # (1.6-8.9) K/mcL Lymphocytes # (0.6-4.6) K/mcL Monocytes # (0.0-1.3) K/mcL Eosinophils # (0.0-0.6) K/mcL Basophils # (0.0-0.2) K/mcL Sodium (136-145) mEq/L Potassium (3.5-5.1) mEq/L Chloride (98-107) mEq/L Carbon Dioxide (23-29) mEq/L BUN (6-20) mg/dL Creatinine (0.70-1.30) mg/dL Est GFR ( Amer) (> 60) Est GFR (Non-Af Amer) (> 60) BUN/Creatinine Ratio (6-26) Glucose (70-105) mg/dL Calculated Osmolality (280-300) Calcium (8.6-10.3) mg/dL Total Bilirubin (0.3-1.0) mg/dL Direct Bilirubin (0.0-0.2) mg/dL Indirect Bilirubin (0.0-1.2) mg/dL AST (13-39) Units/L ALT (7-52) Units/L Alkaline Phosphatase (34-104) Units/L Serum Total Protein (6.4-8.9) g/dL Albumin (3.5-5.7) g/dL Globulin (2.4-3.5) g/dL Albumin/Globulin Ratio (1.1-2.2) TSH (0.340-5.600) mcIU/mL Urine Color (Yellow) Urine Clarity (Clear) Urine pH (5.0-8.0) pH Units Ur Specific [place] (1.010-1.025) Urine Protein (Neg-Trace) mg/dL Urine Glucose (UA) (Normal) mg/dL Urine Ketones (Negative) mg/dL Urine Blood (Negative) Urine Nitrite (Negative) Urine Bilirubin (Negative) Urine Urobilinogen (Normal) mg/dL Ur Leukocyte Esterase (Negative) Salicylates (15.0-30.0) mg/dL Urine Opiates Screen Negative ([place]=510) ng/mL Acetaminophen (10-30) mcg/mL Ur Barbiturates Screen Negative (Zlvcpr=787) ng/mL Ur Phencyclidine Scrn Negative (Cutoff=25) ng/mL Ur Amphetamines Screen Negative (Etlgdv=3786) ng/mL U Benzodiazepines Scrn Negative (Ciqtpv=388) ng/mL Urine Cocaine Screen Negative (Cutoff= 300) ng/mL U Marijuana (THC) Screen Positive H (Cutoff = 50) ng/mL Ethyl Alcohol (0-10) mg/dL - EKG Data EKG attestation: Yes I reviewed and interpreted this EKG. EKG results narrative: EKG taken 2017 at 1238 hrs. shows a sinus rhythm at a rate of 64 beats per minute with no acute ST elevations or depressions and needs, no [place] wine and no QT prolongation. Patient has T-wave inversion in lead 3. An incomplete right bundle-branch block but no previous EKG for comparison. Psychiatric Medical Clearance - Medical Clearance Checklist Medical History: Acute anxiety (Acute) Suicidal ideation (Resolved) Multiple lacerations (Acute) Depression (Chronic) Marijuana abuse (Acute) Anxiety (Chronic) Suicidal ideation (Acute) Depression (Acute) Polysubstance abuse (Acute) Polysubstance dependence including opioid type drug, episodic abuse (Acute) Suicide attempt by beta mark overdose (Acute) Overdose (Acute) Bradycardia (Acute) Suicide attempt by multiple drug overdose (Acute) Beta mark toxicity (Acute) Acute kidney injury (Acute) Depressive disorder, not elsewhere classified (Acute) Polysubstance abuse (Chronic) Intentional overdose of beta-adrenergic blocking drug (Acute) History of suicide attempt (Acute) Abdominal pain (Inactive) Encounter for removal of sutures (Inactive) Laceration (Inactive) Laceration (Inactive) Nausea & vomiting (Inactive) Pharyngitis (Inactive) Pharyngitis (Inactive) Pharyngitis (Inactive) Self-mutilation (Inactive) Sinusitis (Inactive) URI (upper respiratory infection) (Inactive) Upper respiratory infection (Inactive) No Social History Section defined Current Vitals: Last Vital Signs Temp 98.8 F 06/29/17 11:45 Pulse 63 06/29/17 18:23 Resp 18 06/29/17 18:24 BP 116/64 06/29/17 18:24 Pulse Ox 98 06/29/17 15:30 Psychiatric Lab Panel: Drug Levels and Toxicity 06/29/17 06/29/17 11:54 12:08 Urine Opiates Screen Negative Acetaminophen < 1.0 L Ur Barbiturates Screen Negative Ur Phencyclidine Scrn Negative Ur Amphetamines Screen Negative U Benzodiazepines Scrn Negative Urine Cocaine Screen Negative U Marijuana (THC) Screen Positive H Ethyl Alcohol < 10 Abnormal Labs: Abnormal lab results RBC 5.77 M/mcL (4.19-5.50) H 06/29/17 12:05 Glucose 109 mg/dL (70-105) H 06/29/17 11:54 Ur Specific [place] 1.028 (1.010-1.025) H 06/29/17 12:08 Salicylates < 5.0 mg/dL (15.0-30.0) L 06/29/17 11:54 Acetaminophen < 1.0 mcg/mL (10-30) L 06/29/17 11:54 U Marijuana (THC) Screen Positive ng/mL (Cutoff = 50) H 06/29/17 12:08 Statement of Medical Clearance: I have evaluated the patient, reviewed diagnostic information, and certify that the patient's medical condition is sufficiently stable that transfer to the psychiatric unit does not pose a significant risk of deterioration.
[2017-06-29 12:14] LABS: Basophils # 0.1 K/mcL (0.0-0.2); Basophils % 0.8 %; Eosinophils # 0.3 K/mcL (0.0-0.6); Eosinophils % 4.2 %; Hematocrit 49.4 % (37.5-50.1); Hemoglobin 16.3 g/dL (12.9-16.9); Immature Granulocytes % 0.2 % (0-4); Lymphocytes # 2.2 K/mcL (0.6-4.6); Lymphocytes % 34.6 %; Mean Corpuscular Hemoglobin 28.2 pg (28.0-33.3); Mean Corpuscular Volume 85.6 fL (83.0-100.0); Mean Platelet Volume 9.7 fL (9.4-12.4); Monocytes # 0.4 K/mcL (0.0-1.3); Monocytes % 6.4 %; Neutrophils # 3.4 K/mcL (1.6-8.9); Platelet Count 242 K/mcL (140-400); Red Blood Count 5.77 M/mcL (4.19-5.50); Red Cell Distribution Width 12.8 % (11.5-14.5); Segmented Neutrophils % 53.8 %
[2017-06-29] MEDS ORDERED: Lidocaine Viscous Oral Soln 15 ML SOLUTION MM ONE (12:21)
[2017-06-29 12:24] LABS: Bilirubin,Urine Negative (Negative); Blood,Urine Negative (Negative); Clarity,Urine Clear (Clear); Color,Urine Yellow (Yellow); Glucose,Urine (UA) Normal (Normal); Ketones,Urine Negative (Negative); Leukocyte Esterase,Urine Negative (Negative); Nitrite,Urine Negative (Negative); PH,Urine 6.5 pH Units (5.0-8.0); Protein,Urine Negative (Neg-Trace); Specific Gravity,Urine 1.028 (1.010-1.025); Urobilinogen,Urine Normal (Normal)
--- NOTE | 2017-06-29 12:27 | Emergency Department Note ---
START Narrative - START START: I examined this patient and my medical decision-making was reviewed with the Resident Physician. I agree with the documented findings, disposition and treatment plan as described except to the extent set forth below. I examined this patient and my medical decision-making was reviewed with the Resident Physician. I agree with the documented findings, disposition and treatment plan as described except to the extent set forth below. 22 year old male with intentional overdose of 29 propanolol 20mg pills today and has rhys thi at least twice in the past seconary to suicidal ideation and depression. Taj is prescribed propanlol for anxiety. PAtinet is not hypotensive or bradycardiac at this time. I have spoken with poison contorl and they recommedn activated charcoal at this time and if his vital signs begin to alter than we will start glucagon and atropoine. We have the crash cart at bedside and have pacer pads set up. WE will monitor closely and do pysch clearnce labs and cardiopulmoary labs and admit to the ICU. PAtient is A/Ox3 and normotensive/HR of 71.
[2017-06-29 12:32] LABS: Amphetamine Screen,Urine Negative ng/mL (Cutoff=1000); Barbiturate Screen,Urine Negative ng/mL (Cutoff=200); Benzodiazepines Screen,Urine Negative ng/mL (Cutoff=200); Cannabinoid Screen,Urine Positive ng/mL (Cutoff = 50); Cocaine Screen,Urine Negative ng/mL (Cutoff= 300); Opiate Screen,Urine Negative ng/mL (Cutoff=300); Phencyclidine Screen,Urine Negative ng/mL (Cutoff=25)
[2017-06-29 12:38] LABS: Acetaminophen < 1.0 mcg/mL (10-30); Ethanol < 10 mg/dL (0-10); Salicylate < 5.0 mg/dL (15.0-30.0)
[2017-06-29] MEDS ORDERED: Ondansetron 4 MG/2 ML VIAL IVP ONE (12:52)
[2017-06-29 12:57] LABS: Thyroid Stimulating Hormone 1.879 mcIU/mL (0.340-5.600)
[2017-06-29 13:07] LABS: Alanine Aminotransferase 28 Units/L (7-52); Albumin 4.8 g/dL (3.5-5.7); Albumin/Globulin Ratio 1.8 (1.1-2.2); Alkaline Phosphatase 82 Units/L (34-104); Aspartate Amino Transferase 23 Units/L (13-39); BUN/Creatinine Ratio 13 (6-26); Bilirubin,Direct 0.1 mg/dL (0.0-0.2); Bilirubin,Indirect 0.5 mg/dL (0.0-1.2); Bilirubin,Total 0.6 mg/dL (0.3-1.0); Blood Urea Nitrogen 14 mg/dL (6-20); Calcium 9.9 mg/dL (8.6-10.3); Carbon Dioxide 27 mEq/L (23-29); Chloride 105 mEq/L (98-107); Globulin 2.6 g/dL (2.4-3.5); Glucose 109 mg/dL (70-105); Osmolality,Calculated 291 (280-300); Potassium 4.3 mEq/L (3.5-5.1); Sodium 140 mEq/L (136-145); Total Protein 7.4 g/dL (6.4-8.9); eGFR For African Americans > 60 (> 60); eGFR For Non-African Americans > 60 (> 60)
--- NOTE | 2017-06-29 13:53 | Pulmonology History & Physical ---
<Radha Garza - Last Filed: 06/29/17 15:47> Date of Encounter: 06/29/17 Time of Encounter: 13:53 Assessment and Plan (1) Intentional overdose of beta-adrenergic blocking drug Current visit: Yes Status: Acute Patient overdosed taking 29 tablets of Propanolol 20mg while at work after an argument with his associate brand manager. This occurred at 11am and he drove himself to [facility] ED at 11:20am. Afebrile, HR 67, BP 103/ 54, SPO2 99% received activated charcoal and glucagon 3 mg in ED Alert and oriented x3. Plan admit to ICU when bed available consult psych monitor vitals (HR) consider administering glucagon, atropine should HR/ BP decrease order protonix Qualifiers: Encounter type: subsequent encounter Qualified Code(s): T44.7X2D - Poisoning by beta-adrenoreceptor antagonists, intentional self-harm, subsequent encounter (2) History of suicide attempt Current visit: Yes Status: Acute He reported 3 past suicide attempts. Most recent suicide attempt was November 2016 where he overdosed on Seroquel and propanolol. He reported that he has been admitted to multiple times. (3) Depression Current visit: No Status: Chronic History of depression taking Prozac. His psychiatrist is Daily Qualifiers: Depression Type: major depressive disorder Major depression recurrence: recurrent Active/Remission status: currently active Major depression episode severity: severe Psychotic features: without psychotic features Qualified Code(s): F33.2 - Major depressive disorder, recurrent severe without psychotic features (4) Marijuana abuse Current visit: No Status: Acute He admitted to smoking marijuana on a regular basis. He was counseled on cessation of smoking marijuana. (5) Anxiety Current visit: No Status: Chronic History of anxiety taking Prozac. Also taking propanolol as needed. His psychiatrist is Daily History of Present Illness Chief complaint: Intentional overdose HPI: Mr. Mcneal is a 22 year old male with a past medical history of anxiety, depression, and suicide attempt who presented to [facility] after intentionally overdosing taking about 29 Propanolol 20mg tablets. He took the medication at 11am while at work and then 20 minutes later drove himself to [facility]. He stated that he did not take this medication as a suicide attempt, but rather he was upset by his associate brand manager at work. After the upsetting conversation with his associate brand manager he didn't not know how to handle his anger, stress, and anxiety. He then took his propanolol which is as needed for anxiety. He stated he just kept taking one pill after the other until he took all of them and realized he made a mistake and took too many. He reported that he has been hospitalized 3 other times for intentional suicide attempts with the most recent November 2016. At that time he overdosed on Seroquel and propanolol. He has been admitted to multiple times. His psychiatrist is Dr. Funes. While in the ED he received charcoal that he ingested because he could not swallow the NG tube. He also received glucagon 3 g IV. Poison control was called and recommended administering activated charcoal and glucagon should his heart rate drop below 50. EKG in the ED showed NSR, no ST changes, but has T-wave inversion in V3 and incomplete right bundle branch block, but no previous EKG for comparison. Upon my assessment of the patient in the ED he is hemodynamically stable. His girlfriend at that bedside. Afebrile, HR 67, BP 103/54, SPO2 99% on room air. He reported that he feels normal as if he never took anything. He denies chest pain, palpitations, shortness of breath, dizziness, lightheadedness, change in vision, change in hearing, abdominal pain, nausea, vomiting, fever, chills. At this time the ICU is at full capacity, however we are awaiting transfer of multiple patients after which Mr. Mcneal will be admitted to the ICU. The ED will continue with his care until a bed is available. Past Med Surg Social Fam HX - Past Medical History Medical history: no medical history Psychiatric history: anxiety, depression, PTSD, prior suicide attempt, previous psychiatric hospitalization - Past Surgical History Surgical History: no surgical history - Social History Smoking Status: Current every day smoker Smokeless Tobacco Status: No Alcohol use: none Drug use: marijuana Occupational status: employed Current living situation: Home Activity Level: Independent ambulation Medications and Allergies Propranolol [Inderal] 20 mg PO BID PRN #60 tablet 02/13/17 [Rx] FLUoxetine HCl [Prozac] 40 mg PO DAILY 06/29/17 [History] Quetiapine Fumarate [Seroquel] 350 mg PO HS 06/29/17 [History] 3 Allergy/AdvReac Type Severity Reaction Status Date / Time bee venom protein (honey bee) Allergy Anaphylaxis Verified 04/25/17 15:27 shellfish derived Allergy Swelling Verified 04/25/17 15:27 of Lip/Tongue/Throat All Systems: A 10-system review of systems was performed and is negative for pertinent findings except as documented above in the HPI. - Constitutional Constitutional: no chills, no fever(s), no headache(s), no weakness - EENT Eyes: no loss of vision Ears: no tinnitus Nose, mouth and throat: no abnormal hearing - Cardiovascular Cardiovascular: no chest pain, no diaphoresis, no edema, no lightheadedness, no palpitations, no syncope - Respiratory Respiratory: no cough, no dyspnea, no hemoptysis, no wheezing - Gastrointestinal Gastrointestinal: no abdominal pain, no nausea, no vomiting - Musculoskeletal Musculoskeletal: no weakness - Neurological Neurological: no abnormal hearing, no abnormal speech, no dizziness, no syncope , no tingling - Psychiatric Psychiatric: anxiety, depression, mood swings, no suicidal ideation Physical Examination Vital Signs: Vital Signs, Last 4 Hours Temp Pulse Resp BP Pulse Ox 06/29/17 13:37 63 16 103/54 99 06/29/17 12:44 62 18 125/81 98 06/29/17 11:45 98.8 F 67 18 121/82 99 General appearance: no acute distress, alert Eyes: nonicteric ENT: oropharynx moist Neck: supple Auscultation: bilateral: clear Cardiovascular: regular rate and rhythm Gastrointestinal: normoactive bowel sounds, soft, non-tender, non-distended Integumentary: normal Extremities: no cyanosis, no edema Musculoskeletal: no deformities Gait: normal posture normal mental status, non-focal exam mood appropriate, affect normal Results - Laboratory Findings CBC and BMP: 06/29/17 12:05 06/29/17 11:54 Abnormal lab findings: Abnormal lab results RBC 5.77 M/mcL (4.19-5.50) H 06/29/17 12:05 Glucose 109 mg/dL (70-105) H 06/29/17 11:54 Ur Specific [place] 1.028 (1.010-1.025) H 06/29/17 12:08 Salicylates < 5.0 mg/dL (15.0-30.0) L 06/29/17 11:54 Acetaminophen < 1.0 mcg/mL (10-30) L 06/29/17 11:54 U Marijuana (THC) Screen Positive ng/mL (Cutoff = 50) H 06/29/17 12:08 <Trenton Chapasimran Tahir - Last Filed: 06/29/17 16:44> Date of Encounter: 06/29/17 History of Present Illness HPI: Mr. Mcneal is a 22 year old male All Systems: A 10-system review of systems was performed and is negative for pertinent findings except as documented above in the HPI. Physical Examination Vital Signs: Vital Signs, Last 4 Hours Pulse Resp BP Pulse Ox 06/29/17 15:30 66 20 127/78 98 06/29/17 15:00 63 18 115/72 99 06/29/17 14:15 65 18 112/68 99 06/29/17 13:37 63 16 103/54 99 06/29/17 13:35 63 20 103/54 99 06/29/17 12:44 62 18 125/81 98 Results - Laboratory Findings CBC and BMP: 06/29/17 12:05 06/29/17 11:54 Abnormal lab findings: Abnormal lab results RBC 5.77 M/mcL (4.19-5.50) H 06/29/17 12:05 Glucose 109 mg/dL (70-105) H 06/29/17 11:54 Ur Specific [place] 1.028 (1.010-1.025) H 06/29/17 12:08 Salicylates < 5.0 mg/dL (15.0-30.0) L 06/29/17 11:54 Acetaminophen < 1.0 mcg/mL (10-30) L 06/29/17 11:54 U Marijuana (THC) Screen Positive ng/mL (Cutoff = 50) H 06/29/17 12:08 - Attending Attestation I examined this patient and my medical decision-making was reviewed with the Resident Physician. I agree with the documented findings, disposition and treatment plan as described except to the extent set forth below. Patient seen and examined. Labs, radiology, chart personally reviewed. 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 At this time patient is hemodynamically stable and he needs to be monitored for 24 hours and he will be in the emergency room. Now because there is no beds in ICU. Discussed with the emergency room physician and discussed the case with them. Patient has received appropriate treatment according to poison control recommendations. GI: Nutrition per dietary and GI prophylaxis per routine Heme: DVT prophylaxis per routine Renal; urine out put and renal funtion reviewed Endorcine: blood glucose is monitored Lines: all lines checked and no evidence of infections Skin: skin care to prevent pressure ulcers per nursing routine care Patient will need psych evaluation.
[2017-06-29] MEDS ORDERED: Pantoprazole 40 MG VIAL IVP ONE (15:43)
[2017-06-29] MEDS ORDERED: Naloxone 0.4 MG/ML INJ IVP PRN (15:55)
[2017-06-29] MEDS ORDERED: Water for inj. (sterile) 10 ML IV ONE (16:23)
--- NOTE | 2017-06-30 08:30 | Pulmonology Progress Note ---
<Radha Garza - Last Filed: 06/30/17 09:26> Date of Encounter: 06/30/17 Time of Encounter: 09:15 Assessment and Plan (1) Intentional overdose of beta-adrenergic blocking drug Current Visit: Yes Status: Acute Patient overdosed taking 29 tablets of Propanolol 20mg while at work after an argument with his manager administrative. This occurred at 11am and he drove himself to [facility] ED at 11:20am. Afebrile, HR 54, BP 110/63, SPO2 99% room air received activated charcoal and glucagon 3 mg in ED Alert and oriented x3. Plan transfer to floor when bed available psych consulted, appreciate recommendations monitor vitals (HR) consider administering glucagon, atropine should HR/ BP decrease continue protonix Qualifiers: Encounter type: subsequent encounter Qualified Code(s): T44.7X2D - Poisoning by beta-adrenoreceptor antagonists, intentional self-harm, subsequent encounter (2) History of suicide attempt Current Visit: Yes Status: Acute He reported 3 past suicide attempts. Most recent suicide attempt was November 2016 where he overdosed on Seroquel and propanolol. He reported that he has been admitted to multiple times. (3) Depression Current Visit: No Status: Chronic History of depression taking Prozac and seroquel His psychiatrist is Dr. Funes Qualifiers: Depression Type: major depressive disorder Major depression recurrence: recurrent Active/Remission status: currently active Major depression episode severity: severe Psychotic features: without psychotic features Qualified Code(s): F33.2 - Major depressive disorder, recurrent severe without psychotic features (4) Marijuana abuse Current Visit: No Status: Acute He admitted to smoking marijuana on a regular basis. He was counseled on cessation of smoking marijuana. (5) Anxiety Current Visit: No Status: Chronic History of anxiety taking Prozac. Also taking propanolol as needed. His psychiatrist is Dr. Funes Subjective Principal diagnosis: over Interval history: 22yo Males intentionally overdosed taking about 29 Propanolol 20mg tablets. He took the medication at 11am while at work and then 20 minutes later drove himself to [facility]. He stated that he did not take this medication as a suicide attempt, but rather he was upset by his manager administrative at work. He then took his propanolol which is as needed for anxiety. He stated he just kept taking one pill after the other until he took all of them and realized he made a mistake and took too many. While in the ED he received charcoal that he ingested because he could not swallow the NG tube. He also received glucagon 3 g IV. Poison control was called and recommended administering activated charcoal and glucagon should his heart rate drop below 50. EKG in the ED showed NSR, no ST changes, but has T-wave inversion in V3 and incomplete right bundle branch block , but no previous EKG for comparison. When he was admitted to the ICU he remained stable through out the night and morning. He denies chest pain, palpitations, shortness of breathe, dizziness. He will be transferred to the floor when a bed is available. Psych has been consulted. Objective PUL Vital signs: Last Vital Signs Temp 98.0 F 06/30/17 07:41 Pulse 55 06/30/17 07:00 Resp 12 06/30/17 07:00 BP 125/57 06/30/17 07:00 Pulse Ox 97 06/30/17 07:00 General appearance: no acute distress, alert Eyes: nonicteric ENT: oropharynx moist Neck: supple Effort: normal Auscultation: bilateral: clear Cardiovascular: regular rate and rhythm Gastrointestinal: normoactive bowel sounds, soft, tender Integumentary: normal Extremities: no cyanosis, no edema Musculoskeletal: no deformities normal mental status, non-focal exam mood appropriate, affect normal Results - Laboratory Findings CBC and BMP: 06/29/17 12:05 06/29/17 11:54 Abnormal lab findings: Abnormal lab results RBC 5.77 M/mcL (4.19-5.50) H 06/29/17 12:05 Glucose 109 mg/dL (70-105) H 06/29/17 11:54 Ur Specific [place] 1.028 (1.010-1.025) H 06/29/17 12:08 Salicylates < 5.0 mg/dL (15.0-30.0) L 06/29/17 11:54 Acetaminophen < 1.0 mcg/mL (10-30) L 06/29/17 11:54 U Marijuana (THC) Screen Positive ng/mL (Cutoff = 50) H 06/29/17 12:08 - Clinical Findings Intake & Output: Intake & Output 06/29/17 06/30/17 06/30/17 23:59 07:59 15:59 Intake Total 300 / 1300 300 / 300 Output Total 500 / 500 Balance 300 / 1300 -200 / -200 Consult Discharge Plan - Plan Referrals: NONE,PCP [Primary Care Provider] - <Trenton Chapasimran Haro - Last Filed: 06/30/17 09:50> Date of Encounter: 06/30/17 Objective PUL Vital signs: Last Vital Signs Temp 98.0 F 06/30/17 07:41 Pulse 54 06/30/17 09:00 Resp 12 06/30/17 09:00 BP 110/63 06/30/17 09:00 Pulse Ox 97 06/30/17 09:00 Results - Laboratory Findings CBC and BMP: 06/29/17 12:05 06/29/17 11:54 Abnormal lab findings: Abnormal lab results RBC 5.77 M/mcL (4.19-5.50) H 06/29/17 12:05 Glucose 109 mg/dL (70-105) H 06/29/17 11:54 Ur Specific [place] 1.028 (1.010-1.025) H 06/29/17 12:08 Salicylates < 5.0 mg/dL (15.0-30.0) L 06/29/17 11:54 Acetaminophen < 1.0 mcg/mL (10-30) L 06/29/17 11:54 U Marijuana (THC) Screen Positive ng/mL (Cutoff = 50) H 06/29/17 12:08 - Clinical Findings Intake & Output: Intake & Output 06/29/17 06/30/17 06/30/17 23:59 07:59 15:59 Intake Total 300 / 1300 300 / 300 Output Total 500 / 500 Balance 300 / 1300 -200 / -200 - Attending Attestation I examined this patient and my medical decision-making was reviewed with the Resident Physician. I agree with the documented findings, disposition and treatment plan as described except to the extent set forth below. Patient seen and examined. Labs, radiology, chart personally reviewed. 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
[2017-06-30] MEDS ORDERED: Pantoprazole 40 MG VIAL IVP SCH (09:00)
[2017-06-30] MEDS ORDERED: Naloxone 0.4 MG/ML INJ IVP PRN (09:09)
--- NOTE | 2017-06-30 10:21 | Electrocardiograph Report ---
[place] 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
[2017-06-30 12:26] LABS: BUN/Creatinine Ratio 13 (6-26); Blood Urea Nitrogen 13 mg/dL (6-20); Calcium 9.3 mg/dL (8.6-10.3); Carbon Dioxide 27 mEq/L (23-29); Chloride 107 mEq/L (98-107); Glucose 87 mg/dL (70-105); Osmolality,Calculated 287 (280-300); Sodium 139 mEq/L (136-145); eGFR For African Americans > 60 (> 60); eGFR For Non-African Americans > 60 (> 60)
[2017-06-30 15:01] VITALS: BP 117/80
--- NOTE | 2017-06-30 16:41 | Discharge Summary ---
<Radha Garza - Last Filed: 06/30/17 16:39> Date of Encounter: 06/30/17 Time of Encounter: 16:39 - Discharge Diagnosis (1) Intentional overdose of beta-adrenergic blocking drug Priority: Primary Status: Acute Qualifiers: Encounter type: subsequent encounter Qualified Code(s): T44.7X2D - Poisoning by beta-adrenoreceptor antagonists, intentional self-harm, subsequent encounter (2) History of suicide attempt Priority: Secondary Status: Acute (3) Depression Priority: Secondary Status: Chronic Qualifiers: Depression Type: major depressive disorder Major depression recurrence: recurrent Active/Remission status: currently active Major depression episode severity: severe Psychotic features: without psychotic features Qualified Code(s): F33.2 - Major depressive disorder, recurrent severe without psychotic features (4) Marijuana abuse Priority: Secondary Status: Acute (5) Anxiety Priority: Secondary Status: Chronic - Discharge Medications Home Medications: Propranolol [Inderal] 20 mg PO BID PRN #60 tablet 02/13/17 [Rx] FLUoxetine HCl [Prozac] 40 mg PO DAILY 06/29/17 [History] Quetiapine Fumarate [Seroquel] 350 mg PO HS 06/29/17 [History] Allergies/Adverse Reactions: 3 Allergy/AdvReac Type Severity Reaction Status Date / Time bee venom protein (honey bee) Allergy Anaphylaxis Verified 04/25/17 15:27 shellfish derived Allergy Swelling Verified 04/25/17 15:27 of Lip/Tongue/Throat Labs on day of discharge: Labs from last 24 hours 06/30/17 06/29/17 06/29/17 11:44 20:59 18:21 Sodium 139 Potassium 4.0 Chloride 107 Carbon Dioxide 27 BUN 13 Creatinine 1.04 Est GFR ( Amer) > 60 Est GFR (Non-Af Amer) > 60 BUN/Creatinine Ratio 13 Glucose 87 POC Glucose 74 74 Calculated Osmolality 287 Calcium 9.3 Date of admission: 06/29/17 17:32 Primary care physician: PCP NONE Consults: 06/29/17 18:27 Consult to Psychiatry [CONS] Routine Consulting Provider: Shahriar Coronado Reason for Consult: overdose taking 29 propanolol. Patient stated not suicide attempt. PMH: Multiple suicide attempts Call Completed: Yes Discharging clinician: Gail Chapa Anticipated date of discharge: 06/30/17 - Patient Status Disposition: Home, Self-Care Condition: Fair Functional capacity at discharge: independent ambulation Overall status at discharge: patient is back to baseline - Discharge Instructions Follow Up With: Shantel,MIAH Leos [Advanced Practice Nurse] - (Please follow up within 1-2 weeks. ) NONE,PCP [Primary Care Provider] - (Please follow up with Primary care within 5 -7 days. [facility] will notify you of appointment date and time and instructions. [phone]) Additional Instructions: Follow-up with your psychiatrist in 1 to 2 weeks return to the hospital should you start to develop suicidal thoughts and actions. - Diet and Activity Activity: resume usual activities as tolerated Diet: advance to your usual diet - Hospital Course Hospital course: Mr. Mcneal is a 22 year old male with a past medical history of anxiety, depression, and suicide attempt who presented to [facility] after intentionally overdosing taking about 29 Propanolol 20mg tablets. He took the medication at 11am while at work and then 20 minutes later drove himself to [facility]. He stated that he did not take this medication as a suicide attempt, but rather he was upset by his executive meeting manager at work. After the upsetting conversation with his executive meeting manager he didn't not know how to handle his anger, stress, and anxiety. He then took his propanolol which is as needed for anxiety. He stated he just kept taking one pill after the other until he took all of them and realized he made a mistake and took too many. He reported that he has been hospitalized 3 other times for intentional suicide attempts with the most recent November 2016. At that time he overdosed on Seroquel and propanolol. He has been admitted to multiple times. His psychiatrist is Dr. Funes. While in the ED he received charcoal that he ingested because he could not swallow the NG tube. He also received glucagon 3 g IV. Poison control was called and recommended administering activated charcoal and glucagon should his heart rate drop below 50. EKG in the ED showed NSR, no ST changes, but has T-wave inversion in V3 and incomplete right bundle branch block, but no previous EKG for comparison. Upon my assessment of the patient in the ED he is hemodynamically stable. His girlfriend at that bedside. Afebrile, HR 67, BP 103/54, SPO2 99% on room air. He reported that he feels normal as if he never took anything. He denies chest pain, palpitations, shortness of breath, dizziness, lightheadedness, change in vision, change in hearing, abdominal pain, nausea, vomiting, fever, chills. He was admitted to the ICU. He had a sitter and was closely monitored. Follow-up EKG the next day was unchanged from admission EKG. BMP was normal. Psychiatry was consulted and evaluated the patient and stated that he was clear for discharge. They stated that he could continue his home medications of Seroquel , Prozac, propanolol. They stated that he could follow up with his psychiatrist outpatient and he does currently have an appointment to follow up with them. The patient told his nurse that if he was not discharged then he would sign out AMA. Upon discharge the patient denied suicidal ideations or actions, he denied homicidal ideations. He denied chest pain, palpitations, lightheadedness, nausea, vomiting, abdominal pain. There is reiterated to the patient to follow with a psychiatrist upon discharge. He was told to return to the hospital should he develop suicidal ideations or actions. His girlfriend is that bedside. He is alert and oriented times 3 with full capacity instated a clear understanding of the treatment plan. Time spent discussing smoking cessation with patient: more than 10 minutes - Time Spent with Patient Total time spent providing and/or coordinating discharge services: Greater than 30 minutes Physical Examination Vital Signs: Vital Signs, Last 4 Hours Pulse Resp BP Pulse Ox 06/30/17 15:00 69 12 117/80 98 General appearance: no acute distress, alert Eyes: nonicteric ENT: oropharynx moist Neck: supple Effort: normal Inspection: normal Auscultation: bilateral: clear Cardiovascular: regular rate and rhythm Gastrointestinal: normoactive bowel sounds, soft, non-tender Integumentary: normal Extremities: no cyanosis, no edema Musculoskeletal: no deformities normal mental status, non-focal exam mood appropriate, affect normal <Gail Chapa M - Last Filed: 06/30/17 17:08> Date of Encounter: 06/30/17 Labs on day of discharge: Labs from last 24 hours 06/30/17 06/29/17 06/29/17 11:44 20:59 18:21 Sodium 139 Potassium 4.0 Chloride 107 Carbon Dioxide 27 BUN 13 Creatinine 1.04 Est GFR ( Amer) > 60 Est GFR (Non-Af Amer) > 60 BUN/Creatinine Ratio 13 Glucose 87 POC Glucose 74 74 Calculated Osmolality 287 Calcium 9.3 Date of admission: 06/29/17 17:32 Primary care physician: PCP NONE Consults: 06/29/17 18:27 Consult to Psychiatry [CONS] Routine Consulting Provider: Psychiatry Ivonne Reason for Consult: overdose taking 29 propanolol. Patient stated not suicide attempt. PMH: Multiple suicide attempts Call Completed: Yes - Hospital Course Hospital course: Mr. Mcneal is a 22 year old male - Time Spent with Patient Total time spent providing and/or coordinating discharge services: Physical Examination Vital Signs: Vital Signs, Last 4 Hours Pulse Resp BP Pulse Ox 06/30/17 15:00 69 12 117/80 98 - Attending Attestation I examined this patient and my medical decision-making was reviewed with the Resident Physician. I agree with the documented findings, disposition and treatment plan as described except to the extent set forth below. Patient remained hemodynamically stable and he was evaluated by psychiatrist and was planned to discharge him home. Patient is not suicidal and he will be going home on his medication to follow-up with her psychiatrist.
--- NOTE | 2017-06-30 17:40 | Consult Note ---
Date of Encounter: 06/30/17 Time of Encounter: 14:30 Assessment & Recommendation (1) Major depressive disorder, recurrent, mild Status: Acute Assessment & Recommendation: currently under treatment History of Present Illness Requesting Physician: Gail Chapa MD Reason for consult: propranolol History of present illness: Mr. Mcneal is a 22 year old male The patient is seen in the ICU. He had been admitted after taking too many propranolol. Patient reported that he was also work called into work and then given a great deal of stress in the work environment and effort to treat this he took extra propranolol. By the time he had presented he had taken 29 propranolol. The patient stated it was not a suicide attempt in today is being monitored and is not found to have a suicide attempt. He speaks about his current treatment and is currently satisfied with propranolol 20 mg twice a day Seroquel 100 mg daily at bedtime and Prozac 20 mg per day has been added. The patient is followed by Dr. Toure. He has been seeing each month and he is on the waiting list for counseling. The patient is well known to our unit and was last hospitalized in 2017. Patient's girlfriend was present and she notes that he is improved since that time. They have an action plan for anxiety and a safety plan. The patient's aware of the crisis [facility] at [facility] and how to seek help today he voluntarily came in and receive the treatment for an accidental overdose of propranolol. He reports no significant mood symptoms or anxiety symptoms or psychosis such as hallucinations or delusions that lead to this he merely identified stress and indicates that he will go home we will continue his medicine and follow-up as an outpatient. He is not sure about the exact date and time of his appointment but will call [facility] CC: Gail Chapa MD Past Med Surg Social Fam HX - Past Medical History Medical history: no medical history - Past Surgical History Surgical History: no surgical history - Social History Smoking Status: Current every day smoker Smokeless Tobacco Status: No Alcohol use: none Drug use: marijuana - Family History Mother Name: Ayesha Mcneal Age: 37 Father Living Status: Cause of : overdose Medications & Allergies Propranolol [Inderal] 20 mg PO BID PRN #60 tablet 02/13/17 [Rx] FLUoxetine HCl [Prozac] 40 mg PO DAILY 06/29/17 [History] Quetiapine Fumarate [Seroquel] 350 mg PO HS 06/29/17 [History] 3 Allergy/AdvReac Type Severity Reaction Status Date / Time bee venom protein (honey bee) Allergy Anaphylaxis Verified 04/25/17 15:27 shellfish derived Allergy Swelling Verified 04/25/17 15:27 of Lip/Tongue/Throat Mental Status Exam Patient orientation: Yes Person, Yes Time, Yes Place Level of alertness: Alert Patient appearance: Appropriate, Well Groomed Behavior: calm, cooperative, anxious Psychomotor activity: Normal Eye contact: Maintains Eye Contact Mood description: Euthymic/stable, Anxious Affect description: congruent with mood, full range Speech pattern: Normal rate, Normal rhythm, Normal tone Speech volume: Normal Thought process: Linear, Goal Oriented Thought content: No Suicidal ideation, No Homicidal ideation, No Overt delusions Perceptual disturbances: No Auditory hallucinations, No Visual hallucinations Attention span: Capable of Focused Attention Memory description: Grossly Intact Patient reliability: Reliable Historian Intelligence estimate: Average Judgment: Good Insight: Full Results - Vital Signs Vital signs: Temp Pulse Resp BP Pulse Ox 98.9 F 69 12 117/80 98 06/30/17 16:00 06/30/17 15:00 06/30/17 15:00 06/30/17 15:00 06/30/17 15:00 - Labs Labs: Laboratory Last Values WBC 6.2 K/mcL (4.3-11.1) 06/29/17 12:05 RBC 5.77 M/mcL (4.19-5.50) H 06/29/17 12:05 Hgb 16.3 g/dL (12.9-16.9) 06/29/17 12:05 Hct 49.4 % (37.5-50.1) 06/29/17 12:05 MCV 85.6 fL (83.0-100.0) 06/29/17 12:05 MCH 28.2 pg (28.0-33.3) 06/29/17 12:05 MCHC 33.0 g/dL (31.6-35.5) 06/29/17 12:05 RDW 12.8 % (11.5-14.5) 06/29/17 12:05 Plt Count 242 K/mcL (140-400) 06/29/17 12:05 MPV 9.7 fL (9.4-12.4) 06/29/17 12:05 Immature Gran % 0.2 % (0-4) 06/29/17 12:05 Seg Neutrophils % 53.8 % 06/29/17 12:05 Lymphocytes % 34.6 % 06/29/17 12:05 Monocytes % 6.4 % 06/29/17 12:05 Eosinophils % 4.2 % 06/29/17 12:05 Basophils % 0.8 % 06/29/17 12:05 Neutrophils # 3.4 K/mcL (1.6-8.9) 06/29/17 12:05 Lymphocytes # 2.2 K/mcL (0.6-4.6) 06/29/17 12:05 Monocytes # 0.4 K/mcL (0.0-1.3) 06/29/17 12:05 Eosinophils # 0.3 K/mcL (0.0-0.6) 06/29/17 12:05 Basophils # 0.1 K/mcL (0.0-0.2) 06/29/17 12:05 Sodium 139 mEq/L (136-145) 06/30/17 11:44 Potassium 4.0 mEq/L (3.5-5.1) 06/30/17 11:44 Chloride 107 mEq/L (98-107) 06/30/17 11:44 Carbon Dioxide 27 mEq/L (23-29) 06/30/17 11:44 BUN 13 mg/dL (6-20) 06/30/17 11:44 Creatinine 1.04 mg/dL (0.70-1.30) 06/30/17 11:44 Est GFR ( Amer) > 60 (> 60) 06/30/17 11:44 Est GFR (Non-Af Amer) > 60 (> 60) 06/30/17 11:44 BUN/Creatinine Ratio 13 (6-26) 06/30/17 11:44 Glucose 87 mg/dL (70-105) 06/30/17 11:44 POC Glucose 74 (58-89) 06/29/17 20:59 Calculated Osmolality 287 (280-300) 06/30/17 11:44 Calcium 9.3 mg/dL (8.6-10.3) 06/30/17 11:44 Total Bilirubin 0.6 mg/dL (0.3-1.0) 06/29/17 11:54 Direct Bilirubin 0.1 mg/dL (0.0-0.2) 06/29/17 11:54 Indirect Bilirubin 0.5 mg/dL (0.0-1.2) 06/29/17 11:54 AST 23 Units/L (13-39) 06/29/17 11:54 ALT 28 Units/L (7-52) 06/29/17 11:54 Alkaline Phosphatase 82 Units/L (34-104) 06/29/17 11:54 Serum Total Protein 7.4 g/dL (6.4-8.9) 06/29/17 11:54 Albumin 4.8 g/dL (3.5-5.7) 06/29/17 11:54 Globulin 2.6 g/dL (2.4-3.5) 06/29/17 11:54 Albumin/Globulin Ratio 1.8 (1.1-2.2) 06/29/17 11:54 TSH 1.879 mcIU/mL (0.340-5.600) 06/29/17 11:54 Urine Color Yellow (Yellow) 06/29/17 12:08 Urine Clarity Clear (Clear) 06/29/17 12:08 Urine pH 6.5 pH Units (5.0-8.0) 06/29/17 12:08 Ur Specific [place] 1.028 (1.010-1.025) H 06/29/17 12:08 Urine Protein Negative mg/dL (Neg-Trace) 06/29/17 12:08 Urine Glucose (UA) Normal mg/dL (Normal) 06/29/17 12:08 Urine Ketones Negative mg/dL (Negative) 06/29/17 12:08 Urine Blood Negative (Negative) 06/29/17 12:08 Urine Nitrite Negative (Negative) 06/29/17 12:08 Urine Bilirubin Negative (Negative) 06/29/17 12:08 Urine Urobilinogen Normal mg/dL (Normal) 06/29/17 12:08 Ur Leukocyte Esterase Negative (Negative) 06/29/17 12:08 Salicylates < 5.0 mg/dL (15.0-30.0) L 06/29/17 11:54 Urine Opiates Screen Negative ng/mL (Eeskmp=613) 06/29/17 12:08 Acetaminophen < 1.0 mcg/mL (10-30) L 06/29/17 11:54 Ur Barbiturates Screen Negative ng/mL (Fdltmh=655) 06/29/17 12:08 Ur Phencyclidine Scrn Negative ng/mL (Cutoff=25) 06/29/17 12:08 Ur Amphetamines Screen Negative ng/mL (Zxfcsc=6936) 06/29/17 12:08 U Benzodiazepines Scrn Negative ng/mL (Gkljbj=913) 06/29/17 12:08 Urine Cocaine Screen Negative ng/mL (Cutoff= 300) 06/29/17 12:08 U Marijuana (THC) Screen Positive ng/mL (Cutoff = 50) H 06/29/17 12:08 Ethyl Alcohol < 10 mg/dL (0-10) 06/29/17 11:54 Consult Discharge Plan - Plan Additional Instructions: Follow-up with your psychiatrist in 1 to 2 weeks return to the hospital should you start to develop suicidal thoughts and actions. Referrals: Daily,MIAH Leos [Advanced Practice Nurse] - (Please follow up within 1-2 weeks. ) NONE,PCP [Primary Care Provider] - (Please follow up with Primary care within 5 -7 days. [facility] will notify you of appointment date and time and instructions. [phone])
[2017-07-01] MEDS ORDERED: Pantoprazole 40 MG VIAL IVP SCH (09:00)
--- NOTE | 2017-07-05 02:04 | Electrocardiograph Report ---
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
== END 2017-06-30 17:11 | disposition home or self-care (01) | DRG 812 ==
LOC: EMEROO 11:41 → ICNU 17:32
PROVIDERS: ADMIT Internal Medicine Pulmonary Disease; ATTEND Internal Medicine Pulmonary Disease

== ENCOUNTER 2018-01-28 21:15 | Inpatient (IN) ==
--- NOTE | 2018-01-28 21:36 | Emergency Department Note ---
Disposition Clinical Impression: Bipolar disorder Qualifiers: Active/Remission status: currently active Current bipolar episode type: depressed Current episode severity: moderate Qualified Code(s): F31.32 - Bipolar disorder, current episode depressed, moderate Disposition: Admitted As Inpatient Condition: Fair Referrals: NONE,PCP [Primary Care Provider] - Forms: ED Satisfaction Letter Time of Disposition: 00:57 General Adult HPI - General Chief complaint: ED Psychiatric Symptoms Stated complaint: SI Time Seen by Provider: 01/28/18 21:20 Source: patient Mode of arrival: ambulatory Limitations: no limitations - History of Present Illness HPI Narrative: This is a 22-year-old male with a history of bipolar disorder and depression who states he is off his medicines for at least 2 months. He has been having thoughts of self-harm, and caught his left arm in 5 different locations this evening and burned it in 2 locations. Pain Scale: 0 - Related Data Home Medications Medication Instructions Recorded Confirmed Divalproex (12 HR) [Depakote (12 500 mg PO BID 09/12/17 01/28/18 HR)] FLUoxetine HCl [Prozac] 40 mg PO DAILY 09/12/17 01/28/18 Quetiapine Fumarate [Seroquel] 300 mg PO HS 09/12/17 01/28/18 Ziprasidone HCl [Geodon] 20 mg PO BID 09/12/17 01/28/18 Allergies Allergy/AdvReac Type Severity Reaction Status Date / Time bee venom protein (honey bee) Allergy Anaphylaxis Verified 04/25/17 15:27 shellfish derived Allergy Swelling Verified 04/25/17 15:27 of Lip/Tongue/Throat All systems ED: reviewed and negative except as stated. Integumentary: Reports: other (Superficial lacerations) Psychiatric: Reports: suicidal thoughts, other (Thoughts of self-harm, uncontrolled bipolar) Past Medical History - Past Medical History Medical history: Reports: no medical history Surgical history: Reports: no surgical history Psychiatric history: Reports: anxiety, bipolar, depression, PTSD, prior suicide attempt, previous psychiatric hospitalization, other - Social History Smoking Status: Current every day smoker Smokeless Tobacco Status: No Alcohol use: Reports: none Drug use: Reports: marijuana Physical Exam - General Limitations: no limitations General appearance: alert, in no apparent distress - Head Head exam: atraumatic, normocephalic, normal inspection - Eye Eye exam: Present: normal appearance, PERRL, EOMI - Chest Chest inspection: Present: normal inspection, symmetric chest wall rise - Respiratory Respiratory exam: Present: normal lung sounds bilaterally - Cardiovascular Cardiovascular exam: Present: regular rate, normal rhythm, normal heart sounds - Abdominal Exam Abdominal exam: Present: soft, Non-Tender. Absent: tenderness, distention, guarding, rebound, rigidity - Extremities Exam Extremities exam: Present: normal inspection, full ROM. Absent: tenderness - Neurological Exam Neurological exam: Present: alert, oriented X3, CN II-XII intact. Absent: motor sensory deficit - Psychiatric Psychiatric exam: Present: flat affect - Skin Skin exam: Present: warm, dry, other (There are 5 partially 3 cm superficial lacerations on the proximal to medial left ventral forearm, along with 28 mm diameter celaya which appear to be second-degree celaya) Course Course Narrative: This is a 22-year-old male with what appears to be poorly controlled bipolar disorder Vital Signs Temperature 98.7 F 01/28/18 21:16 Pulse Rate 89 01/28/18 21:16 Respiratory Rate 16 01/28/18 21:16 Blood Pressure 155/96 01/28/18 21:16 O2 Sat by Pulse Oximetry 99 01/28/18 21:16 Temperature 98.7 F 01/28/18 21:16 Pulse Rate 89 01/28/18 21:16 Respiratory Rate 16 01/28/18 21:16 Blood Pressure 155/96 01/28/18 21:16 O2 Sat by Pulse Oximetry 99 01/28/18 21:16 Oxygen Delivery Oxygen Delivery Room Air Medical Decision Making - [facility] Narrative Medical decision making narrative: He was seen by psychiatry and admitted to the psychiatry service - Lab Data Lab results reviewed: Yes I reviewed the patient's lab results. Lab results narrative: CBC was unremarkable BMP was unremarkable UA was unremarkable Alcohol was low Tylenol was low Salicylate were low Drug screen was positive for THC Result diagrams: 01/28/18 21:43 01/28/18 21:43 Lab Results 01/28/18 01/28/18 01/28/18 Range/Units 21:43 21:43 21:45 WBC 7.2 (4.3-11.1) K/mcL RBC 5.14 (4.19-5.50) M/mcL Hgb 14.9 (12.9-16.9) g/dL Hct 42.9 (37.5-50.1) % MCV 83.5 (83.0-100.0) fL MCH 29.0 (28.0-33.3) pg MCHC 34.7 (31.6-35.5) g/dL RDW 12.2 (11.5-14.5) % Plt Count 179 (140-400) K/mcL MPV 9.8 (9.4-12.4) fL Immature Gran % 0.3 (0-4) % Seg Neutrophils % 50.7 % Lymphocytes % 38.1 % Monocytes % 6.2 % Eosinophils % 4.0 % Basophils % 0.7 % Neutrophils # 3.7 (1.6-8.9) K/mcL Lymphocytes # 2.8 (0.6-4.6) K/mcL Monocytes # 0.5 (0.0-1.3) K/mcL Eosinophils # 0.3 (0.0-0.6) K/mcL Basophils # 0.1 (0.0-0.2) K/mcL Sodium 139 (136-145) mEq/L Potassium 3.8 (3.5-5.1) mEq/L Chloride 107 (98-107) mEq/L Carbon Dioxide 25 (23-29) mEq/L BUN 16 (6-20) mg/dL Creatinine 1.15 (0.70-1.30) mg/dL Est GFR ( Amer) > 60 (> 60) Est GFR (Non-Af Amer) > 60 (> 60) BUN/Creatinine Ratio 14 (6-26) Glucose 112 H (70-105) mg/dL Calculated Osmolality 290 (280-300) Calcium 8.9 (8.6-10.3) mg/dL Urine Color Yellow (Yellow) Urine Clarity Clear (Clear) Urine pH 6.0 (5.0-8.0) pH Units Ur Specific [place] 1.025 (1.010-1.025) Urine Protein Negative (Neg-Trace) mg/dL Urine Glucose (UA) Normal (Normal) mg/dL Urine Ketones Trace H (Negative) mg/dL Urine Blood Negative (Negative) Urine Nitrite Negative (Negative) Urine Bilirubin Negative (Negative) Urine Urobilinogen Normal (Normal) mg/dL Ur Leukocyte Esterase Negative (Negative) Salicylates < 2.5 L (15.0-30.0) mg/dL Urine Opiates Screen (Vqdoyi=980) ng/mL Acetaminophen < 10 L (10-20) mcg/mL Ur Barbiturates Screen (Gbqnnr=537) ng/mL Ur Phencyclidine Scrn (Cutoff=25) ng/mL Ur Amphetamines Screen (Hkdfxl=6418) ng/mL U Benzodiazepines Scrn (Cdukrb=050) ng/mL Urine Cocaine Screen (Cutoff= 300) ng/mL U Marijuana (THC) Screen (Cutoff = 50) ng/mL Ur Drug Screen Interp Ethyl Alcohol < 10 (Less than 10) mg/dL 01/28/18 Range/Units 21:45 WBC (4.3-11.1) K/mcL RBC (4.19-5.50) M/mcL Hgb (12.9-16.9) g/dL Hct (37.5-50.1) % MCV (83.0-100.0) fL MCH (28.0-33.3) pg MCHC (31.6-35.5) g/dL RDW (11.5-14.5) % Plt Count (140-400) K/mcL MPV (9.4-12.4) fL Immature Gran % (0-4) % Seg Neutrophils % % Lymphocytes % % Monocytes % % Eosinophils % % Basophils % % Neutrophils # (1.6-8.9) K/mcL Lymphocytes # (0.6-4.6) K/mcL Monocytes # (0.0-1.3) K/mcL Eosinophils # (0.0-0.6) K/mcL Basophils # (0.0-0.2) K/mcL Sodium (136-145) mEq/L Potassium (3.5-5.1) mEq/L Chloride (98-107) mEq/L Carbon Dioxide (23-29) mEq/L BUN (6-20) mg/dL Creatinine (0.70-1.30) mg/dL Est GFR ( Amer) (> 60) Est GFR (Non-Af Amer) (> 60) BUN/Creatinine Ratio (6-26) Glucose (70-105) mg/dL Calculated Osmolality (280-300) Calcium (8.6-10.3) mg/dL Urine Color (Yellow) Urine Clarity (Clear) Urine pH (5.0-8.0) pH Units Ur Specific [place] (1.010-1.025) Urine Protein (Neg-Trace) mg/dL Urine Glucose (UA) (Normal) mg/dL Urine Ketones (Negative) mg/dL Urine Blood (Negative) Urine Nitrite (Negative) Urine Bilirubin (Negative) Urine Urobilinogen (Normal) mg/dL Ur Leukocyte Esterase (Negative) Salicylates (15.0-30.0) mg/dL Urine Opiates Screen Negative (Gbphop=663) ng/mL Acetaminophen (10-20) mcg/mL Ur Barbiturates Screen Negative (Whvvpy=910) ng/mL Ur Phencyclidine Scrn Negative (Cutoff=25) ng/mL Ur Amphetamines Screen Negative (Fwecdy=0135) ng/mL U Benzodiazepines Scrn Negative (Iynofr=485) ng/mL Urine Cocaine Screen Negative (Cutoff= 300) ng/mL U Marijuana (THC) Screen Positive H (Cutoff = 50) ng/mL Ur Drug Screen Interp See Below Ethyl Alcohol (Less than 10) mg/dL Critical Care Time Critical Care Time: No
[2018-01-28] MEDS ORDERED: Divalproex (12 HR) 500 MG TABLET PO ONE (21:45)
[2018-01-28] MEDS ORDERED: Ziprasidone 20 MG CAPSULE PO ONE (21:45)
[2018-01-28] MEDS ORDERED: FLUoxetine 20 MG CAPSULE PO ONE (21:45)
[2018-01-28 21:55] LABS: Basophils # 0.1 K/mcL (0.0-0.2); Basophils % 0.7 %; Eosinophils # 0.3 K/mcL (0.0-0.6); Hematocrit 42.9 % (37.5-50.1); Hemoglobin 14.9 g/dL (12.9-16.9); Immature Granulocytes % 0.3 % (0-4); Lymphocytes # 2.8 K/mcL (0.6-4.6); Lymphocytes % 38.1 %; Mean Corpuscular HGB Conc 34.7 g/dL (31.6-35.5); Mean Corpuscular Volume 83.5 fL (83.0-100.0); Mean Platelet Volume 9.8 fL (9.4-12.4); Monocytes # 0.5 K/mcL (0.0-1.3); Monocytes % 6.2 %; Neutrophils # 3.7 K/mcL (1.6-8.9); Platelet Count 179 K/mcL (140-400); Red Blood Count 5.14 M/mcL (4.19-5.50); Red Cell Distribution Width 12.2 % (11.5-14.5); Segmented Neutrophils % 50.7 %
[2018-01-28 22:00] LABS: Bilirubin,Urine Negative (Negative); Blood,Urine Negative (Negative); Clarity,Urine Clear (Clear); Color,Urine Yellow (Yellow); Glucose,Urine (UA) Normal (Normal); Ketones,Urine Trace mg/dL (Negative); Leukocyte Esterase,Urine Negative (Negative); Nitrite,Urine Negative (Negative); Protein,Urine Negative (Neg-Trace); Specific Gravity,Urine 1.025 (1.010-1.025); Urobilinogen,Urine Normal (Normal)
[2018-01-28 22:32] LABS: Acetaminophen < 10 mcg/mL (10-20); BUN/Creatinine Ratio 14 (6-26); Blood Urea Nitrogen 16 mg/dL (6-20); Calcium 8.9 mg/dL (8.6-10.3); Carbon Dioxide 25 mEq/L (23-29); Chloride 107 mEq/L (98-107); Ethanol < 10 mg/dL (Less than 10); Glucose 112 mg/dL (70-105); Osmolality,Calculated 290 (280-300); Potassium 3.8 mEq/L (3.5-5.1); Salicylate < 2.5 mg/dL (15.0-30.0); Sodium 139 mEq/L (136-145); eGFR For Non-African Americans > 60 (> 60)
[2018-01-28 22:57] LABS: Amphetamine Screen,Urine Negative ng/mL (Cutoff=1000); Barbiturate Screen,Urine Negative ng/mL (Cutoff=200); Benzodiazepines Screen,Urine Negative ng/mL (Cutoff=200); Cannabinoid Screen,Urine Positive ng/mL (Cutoff = 50); Cocaine Screen,Urine Negative ng/mL (Cutoff= 300); Opiate Screen,Urine Negative ng/mL (Cutoff=300); Phencyclidine Screen,Urine Negative ng/mL (Cutoff=25)
[2018-01-29] MEDS ORDERED: *HR* LORazepam 2 MG/ML VIAL IM PRN (01:35)
[2018-01-29] MEDS ORDERED: Mag Hydrox/Al Hydrox/Simeth 30 ML UDC PO PRN (01:35)
[2018-01-29] MEDS ORDERED: *HR* LORazepam 1 MG TABLET PO PRN (01:35)
[2018-01-29] MEDS ORDERED: Haloperidol Lactate 5 MG/ML VIAL IM PRN (01:35)
[2018-01-29] MEDS ORDERED: Acetaminophen 325 MG TABLET PO PRN (01:35)
[2018-01-29] MEDS ORDERED: hydrOXYzine pamoate 25 MG CAPSULE PO PRN (01:35)
[2018-01-29] MEDS ORDERED: MOM Conc 10 ML UD.LIQ PO PRN (01:35)
--- NOTE | 2018-01-29 10:25 | Psychiatry History & Physical ---
Date of Encounter: 01/29/18 Time of Encounter: 10:00 History of Present Illness Patient Stated Chief Complaint: Suicidal ideation, auditory hallucination Medicare Admission Attestation: For traditional Medicare patients the provided hospital inpatient services are reasonable and necessary and in the case of services not specified as inpatient -only under 42 CFR 419.22 (n), that they are appropriately provided as inpatient services in accordance 42 CFR 412.3. For Critical Access Hospital the patient may reasonably be expected to be discharged or transferred to a hospital within 96 hours after admission to the Critical Access Hospital. Admitted From: Emergency Dept History of Present Illness: Mr. Mcneal is a 22 year old male admitted from the emergency department for suicidal ideation and auditory hallucinations. Patient reports being out of her medication for the past 2 months due to insurance problems also because of insurance problems she could not see his psychiatrist or counselor and started feeling depressed and anxious and unable to sleep irritable and started having suicidal ideation also he described auditory hallucinations and came to the hospital for help. In the ED his UDS was positive for THC also he was given daily dose of his medication including Depakote Seroquel. Patient was hospitalized in this units most recently in January 2017 was a similar presentation. In the past patient had suicide attempts by overdose and cutting himself. Past Med Surg Social Fam HX - Past Medical History Medical history: no medical history - Past Psychiatric History Psychiatric history: Reports: anxiety, depression, prior suicide attempt, previous psychiatric hospitalization Past psychiatric history details: Most recent hospitalization at [place] January 2017. - Past Surgical History Surgical History: no surgical history - Social History Smoking Status: Current every day smoker Smokeless Tobacco Status: No Alcohol use: none Drug use: marijuana - Family History Father Living Status: Medications & Allergies Divalproex (12 HR) [Depakote (12 HR)] 500 mg PO BID 09/12/17 [History] FLUoxetine HCl [Prozac] 40 mg PO DAILY 09/12/17 [History] Quetiapine Fumarate [Seroquel] 300 mg PO HS 09/12/17 [History] Ziprasidone HCl [Geodon] 20 mg PO BID 09/12/17 [History] 3 Allergy/AdvReac Type Severity Reaction Status Date / Time bee venom protein (honey bee) Allergy Anaphylaxis Verified 04/25/17 15:27 shellfish derived Allergy Swelling Verified 04/25/17 15:27 of Lip/Tongue/Throat Review of Systems Psychiatric: Reports: depression, anxiety, suicidal ideation, auditory hallucinations, irritability Exam - HEENT Head exam IM: Present: atraumatic Eye exam IM: Present: EOMI, normal appearance, PERRL ENT exam IM: Present: normal exam - Neurological Neurological exam: Present: CN II-XII intact - Respiratory Respiratory exam IM: Present: CTAB - GI/Abdominal GI/Abdominal exam IM: Present: normal bowel sounds, soft. Absent: tenderness - Extremities Extremities exam IM: Present: full ROM - Skin Skin exam IM: Present: dry, warm - Constitutional Vitals: Temp Pulse Resp BP Pulse Ox 97.4 F L 76 16 126/89 99 01/29/18 01:15 01/29/18 01:15 01/29/18 01:15 01/29/18 01:15 01/28/18 21:16 General appearance: age & developmentally appropriate, well-groomed, well- nourished, obese - Musculoskeletal Gait: normal Station: relaxed Strength & Tone: normal for patient - Psychiatric Patient Orientation: Yes Person, Yes Time, Yes Place Level of alertness: Alert Behavior: calm, cooperative Psychomotor activity: Normal Eye Contact: Maintains Eye Contact Mood Description: Euthymic/stable, Depressed Affect description: congruent with mood, constricted Speech Volume: Normal Speech pattern: normal rate, normal rhythm, normal tone, fluent, spontaneous Language & Vocabulary: consistent with education Thought Process: Linear, Goal Oriented Thought Content: Yes Suicidal ideation, No Homicidal ideation, No Overt delusions Perceptual Disturbances: Yes Auditory hallucinations, No Visual hallucinations Attention Span Ability: Capable of Focused Attention Memory Description: Grossly Intact Patient Reliability: Reliable Historian Fund of knowledge: Yes abstraction ability, Yes average, Yes aware of current events Intelligence Estimate: Average Judgment: Limited Insight: Partial Results - Labs Labs: Laboratory Last Values WBC 7.2 K/mcL (4.3-11.1) 01/28/18 21:43 RBC 5.14 M/mcL (4.19-5.50) 01/28/18 21:43 Hgb 14.9 g/dL (12.9-16.9) 01/28/18 21:43 Hct 42.9 % (37.5-50.1) 01/28/18 21:43 MCV 83.5 fL (83.0-100.0) 01/28/18 21:43 MCH 29.0 pg (28.0-33.3) 01/28/18 21:43 MCHC 34.7 g/dL (31.6-35.5) 01/28/18 21:43 RDW 12.2 % (11.5-14.5) 01/28/18 21:43 Plt Count 179 K/mcL (140-400) 01/28/18 21:43 MPV 9.8 fL (9.4-12.4) 01/28/18 21:43 Immature Gran % 0.3 % (0-4) 01/28/18 21:43 Seg Neutrophils % 50.7 % 01/28/18 21:43 Lymphocytes % 38.1 % 01/28/18 21:43 Monocytes % 6.2 % 01/28/18 21:43 Eosinophils % 4.0 % 01/28/18 21:43 Basophils % 0.7 % 01/28/18 21:43 Neutrophils # 3.7 K/mcL (1.6-8.9) 01/28/18 21:43 Lymphocytes # 2.8 K/mcL (0.6-4.6) 01/28/18 21:43 Monocytes # 0.5 K/mcL (0.0-1.3) 01/28/18 21:43 Eosinophils # 0.3 K/mcL (0.0-0.6) 01/28/18 21:43 Basophils # 0.1 K/mcL (0.0-0.2) 01/28/18 21:43 Sodium 139 mEq/L (136-145) 01/28/18 21:43 Potassium 3.8 mEq/L (3.5-5.1) 01/28/18 21:43 Chloride 107 mEq/L (98-107) 01/28/18 21:43 Carbon Dioxide 25 mEq/L (23-29) 01/28/18 21:43 BUN 16 mg/dL (6-20) 01/28/18 21:43 Creatinine 1.15 mg/dL (0.70-1.30) 01/28/18 21:43 Est GFR ( Amer) > 60 (> 60) 01/28/18 21:43 Est GFR (Non-Af Amer) > 60 (> 60) 01/28/18 21:43 BUN/Creatinine Ratio 14 (6-26) 01/28/18 21:43 Glucose 112 mg/dL (70-105) H 01/28/18 21:43 Calculated Osmolality 290 (280-300) 01/28/18 21:43 Calcium 8.9 mg/dL (8.6-10.3) 01/28/18 21:43 Urine Color Yellow (Yellow) 01/28/18 21:45 Urine Clarity Clear (Clear) 01/28/18 21:45 Urine pH 6.0 pH Units (5.0-8.0) 01/28/18 21:45 Ur Specific [place] 1.025 (1.010-1.025) 01/28/18 21:45 Urine Protein Negative mg/dL (Neg-Trace) 01/28/18 21:45 Urine Glucose (UA) Normal mg/dL (Normal) 01/28/18 21:45 Urine Ketones Trace mg/dL (Negative) H 01/28/18 21:45 Urine Blood Negative (Negative) 01/28/18 21:45 Urine Nitrite Negative (Negative) 01/28/18 21:45 Urine Bilirubin Negative (Negative) 01/28/18 21:45 Urine Urobilinogen Normal mg/dL (Normal) 01/28/18 21:45 Ur Leukocyte Esterase Negative (Negative) 01/28/18 21:45 Salicylates < 2.5 mg/dL (15.0-30.0) L 01/28/18 21:43 Urine Opiates Screen Negative ng/mL (Vwhzra=685) 01/28/18 21:45 Acetaminophen < 10 mcg/mL (10-20) L 01/28/18 21:43 Ur Barbiturates Screen Negative ng/mL (Serdbo=910) 01/28/18 21:45 Ur Phencyclidine Scrn Negative ng/mL (Cutoff=25) 01/28/18 21:45 Ur Amphetamines Screen Negative ng/mL (Mrvomz=6323) 01/28/18 21:45 U Benzodiazepines Scrn Negative ng/mL (Kjhmfj=417) 01/28/18 21:45 Urine Cocaine Screen Negative ng/mL (Cutoff= 300) 01/28/18 21:45 U Marijuana (THC) Screen Positive ng/mL (Cutoff = 50) H 01/28/18 21:45 Ur Drug Screen Interp See Below 01/28/18 21:45 Ethyl Alcohol < 10 mg/dL (Less than 10) 01/28/18 21:43 Assessment and Plan (1) Depressive disorder, not elsewhere classified Current visit: No Status: Acute Plan: Admit inpatient for safety and stabilization, Close observation, Suicide Precautions per unit protocol, Encourage participation in unit milieu, Group Therapy, Monitor sleep, Monitor appetite Additional Plan: We will verify patient for medication and restart and continue to monitor. Risks, benefits, side effects, alternatives discussed w/pt: Yes Patient agreeable to treatment: Yes Estimated Length of Stay (Days): 5
[2018-01-29] MEDS: FLUoxetine 20 MG CAPSULE PO SCH (11:58)
[2018-01-29] MEDS: Divalproex (12 HR) 500 MG TABLET PO SCH (20:59)
[2018-01-30] MEDS: FLUoxetine 20 MG CAPSULE PO SCH (08:55)
[2018-01-30] MEDS: Divalproex (12 HR) 500 MG TABLET PO SCH ×2 (08:55→21:10)
--- NOTE | 2018-01-30 13:53 | Psychiatry Progress Note ---
Date of Encounter: 01/30/18 Time of Encounter: 13:51 Subjective Interval history: Patient is seen for follow-up. Case discussed with treatment team. Staff report patient is medication compliant and cooperative, participate in activities. Denies suicidal ideation. Tolerating medication without any side effects. Reported improved sleep and appetite. Denies any anxiety or panic attacks. Interested in going back to work after stabilization. Review of Systems Psychiatric: Reports: depression, anxiety, suicidal ideation, auditory hallucinations, irritability Results - Vital Signs Vital Signs: Temp Pulse Resp BP Pulse Ox 98.3 F 88 18 119/81 99 01/30/18 09:00 01/30/18 09:00 01/30/18 09:00 01/30/18 09:00 01/28/18 21:16 Assessment and Plan (1) Depressive disorder, not elsewhere classified Current visit: No Status: Acute Plan: Continue hospitalization, Close observation, Suicide Precautions per unit protocol, Encourage participation in unit milieu, Group Therapy, Monitor sleep, Monitor appetite Risks, benefits, side effects, alternatives discussed w/pt: Yes Patient agreeable to treatment: Yes Consult Discharge Plan - Plan Referrals: [facility] [Outside] - 02/22/18 3:00 pm (The above appointment is with Wesley Granados for outpatient psychiatric assessment and medication management services. Please arrive 10 minutes early to complete the check-in process. Please bring your insurance card (or [facility] award letter) and photo ID. If you are unable to keep this appointment, 24 hour business notice of cancellation is expected. If you miss your new patient appointment with any provider without providing appropriate notice, you cannot be re-scheduled for that service. The above appointment(s) reflects first availability. You may contact the office regularly to check for cancellations that may allow you to be seen sooner. The [facility] is the 1st building behind [facility] in [place], [place]. Please do not use GPS or mapping apps to locate the office, as they will take you to the wrong location. ) [facility] 3:00 pm (The above appointment is with Alesha Wang. Please complete and bring the [facility] intake packet you were provided at the hospital to this appointment. When you come to your first appointment, you will be meeting with business office staff, meeting with a counselor, and developing a treatment plan. You will receive follow- up appointments for on-going services, which could include community support, mental health and substance abuse counseling, groups/partial hospitalization programming and medication assisted treatment. You will also need to bring the following to your first appointment as well: 1) proof of household income (two consecutive pay stubs, social security award letter, bank statement, statement letter from [facility], child support statement, IRS 1040 or W2 form, or a statement from the person who financially supports you stating they help provide for your basic needs), 2) proof of residency (drivers license, a piece of mail showing your address, a statement from person you live with verifying you live at their address), 3) photo ID, 4) your insurance card 5) if you do not have insurance but have applied for Medicaid, please bring verification you have applied. The above appointment(s) reflects first availability. You may contact the office regularly to check for cancellations that may allow you to be seen sooner.) Jesusita Bearden [Advanced Practice Nurse] - (The above appointment is with Jesusita Bearden CNP, at Primary Care within [facility]. This appointment is to establish you with a primary care provider. Your needs for medication will be assessed and treated as indicated as well. Please arrive 15 minutes early to complete paperwork. Please bring your insurance card, photo ID and list of current medications to your first appointment. The above appointment(s) reflects first availability. You may contact the office regularly to check for cancellations that may allow you to be seen sooner.) Psychiatry Exam - Constitutional Vitals: Temp Pulse Resp BP Pulse Ox 98.3 F 88 18 119/81 99 01/30/18 09:00 01/30/18 09:00 01/30/18 09:00 01/30/18 09:00 01/28/18 21:16 General appearance: age & developmentally appropriate, well-nourished, disheveled, obese - Musculoskeletal Gait: normal Station: relaxed Strength & Tone: normal for patient - Psychiatric Patient Orientation: Yes Person, Yes Time, Yes Place Level of alertness: Alert Behavior: calm, cooperative Psychomotor activity: Normal Eye Contact: Maintains Eye Contact Mood Description: Euthymic/stable, Anxious Affect description: congruent with mood, full range Speech Volume: Normal Speech pattern: normal rate, normal rhythm, normal tone, fluent, spontaneous Language & Vocabulary: consistent with education Thought Process: Linear, Goal Oriented Thought Content: No Suicidal ideation, No Homicidal ideation, No Overt delusions Perceptual Disturbances: No Auditory hallucinations, No Visual hallucinations Attention Span Ability: Capable of Focused Attention Memory Description: Grossly Intact Patient Reliability: Reliable Historian Fund of knowledge: Yes abstraction ability, Yes aware of current events Intelligence Estimate: Average Judgment: Limited Insight: Partial
[2018-01-31] MEDS: Divalproex (12 HR) 500 MG TABLET PO SCH (08:23)
[2018-01-31] MEDS: FLUoxetine 20 MG CAPSULE PO SCH (08:23)
[2018-01-31 10:50] VITALS: BP 125/80
--- NOTE | 2018-01-31 11:03 | Discharge Summary ---
Date of Encounter: 01/31/18 Time of Encounter: 11:00 Diagnosis - Discharge Diagnosis (1) Bipolar disorder Status: Acute Qualifiers: Active/Remission status: currently active Current bipolar episode type: depressed Current episode severity: moderate Qualified Code(s): F31.32 - Bipolar disorder, current episode depressed, moderate (2) Marijuana abuse Status: Acute Medications - Discharge Medications Prescriptions: Divalproex (12 HR) [Depakote (12 HR)] 500 mg PO BID #60 tablet. FLUoxetine HCl [Prozac] 40 mg PO DAILY #30 capsule Quetiapine Fumarate [Seroquel] 200 mg PO HS #60 tablet Divalproex (12 HR) [Depakote (12 HR)] 500 mg PO BID #60 tablet. 01/31/18 [Rx] FLUoxetine HCl [Prozac] 40 mg PO DAILY #30 capsule 01/31/18 [Rx] Quetiapine Fumarate [Seroquel] 200 mg PO HS #60 tablet 01/31/18 [Rx] 3 Allergy/AdvReac Type Severity Reaction Status Date / Time bee venom protein (honey bee) Allergy Anaphylaxis Verified 04/25/17 15:27 shellfish derived Allergy Swelling Verified 04/25/17 15:27 of Lip/Tongue/Throat Provider Date of admission: 01/29/18 00:57 Primary care physician: PCP NONE Discharging clinician: Barrie Salinas Psychiatry Exam - Constitutional Vitals: Temp Pulse Resp BP Pulse Ox 98.3 F 96 14 125/80 99 01/31/18 09:00 01/31/18 09:00 01/31/18 09:00 01/31/18 09:00 01/28/18 21:16 General appearance: unkempt, obese - Musculoskeletal Gait: normal Station: relaxed Strength & Tone: normal for patient - Psychiatric Patient Orientation: Yes Person, Yes Time, Yes Place Level of alertness: Alert Behavior: calm, cooperative Psychomotor activity: Normal Eye Contact: Maintains Eye Contact Mood Description: Euthymic/stable Affect description: congruent with mood, full range Speech Volume: Normal Speech pattern: normal rate, normal rhythm, normal tone, fluent, spontaneous Language & Vocabulary: consistent with education Thought Process: Linear, Goal Oriented Thought Content: No Suicidal ideation, No Homicidal ideation, No Overt delusions Perceptual Disturbances: No Auditory hallucinations, No Visual hallucinations Attention Span Ability: Capable of Focused Attention Memory Description: Grossly Intact Patient Reliability: Reliable Historian Fund of knowledge: Yes abstraction ability, Yes aware of current events Intelligence Estimate: Average Judgment: Limited Insight: Partial Hospital Course Hospital course: Mr. Mcneal is a 22 year old male admitted from the emergency department for depression and suicidal ideation and THC abuse. For details of admission please see H&P On the unit patient was started on his medication including Depakote, fluoxetine and Seroquel. Patient responded well to medication reported improved sleep and appetite, he denied suicidal ideation. fairing worker was able to reestablish his insurance and continue with she will care after discharge. Patient participated in groups and he was cooperative with the staff. On discharge patient was medically stable denies suicidal ideation tolerating medication was out any side effects future oriented and anxious to go back to work. He is discharged in stable condition. - Time Spent with Patient Total time spent providing and/or coordinating discharge services: Less than 30 minutes Assessment and Plan - Patient/Caregiver Discharge Instructions Activity: resume usual activities as tolerated Diet: regular diet - Follow up Plan Follow up with: [facility] [Outside] - 02/22/18 3:00 pm (The above appointment is with Wesley Granados for outpatient psychiatric assessment and medication management services. Please arrive 10 minutes early to complete the check-in process. Please bring your insurance card (or [facility] award letter) and photo ID. If you are unable to keep this appointment, 24 hour business notice of cancellation is expected. If you miss your new patient appointment with any provider without providing appropriate notice, you cannot be re-scheduled for that service. The above appointment(s) reflects first availability. You may contact the office regularly to check for cancellations that may allow you to be seen sooner. The [facility] is the 1st building behind [facility] in [place], [place]. Please do not use GPS or mapping apps to locate the office, as they will take you to the wrong location. ) [facility] 3:00 pm (The above appointment is with Alesha Wang. Please complete and bring the [facility] intake packet you were provided at the hospital to this appointment. When you come to your first appointment, you will be meeting with business office staff, meeting with a counselor, and developing a treatment plan. You will receive follow- up appointments for on-going services, which could include community support, mental health and substance abuse counseling, groups/partial hospitalization programming and medication assisted treatment. You will also need to bring the following to your first appointment as well: 1) proof of household income (two consecutive pay stubs, social security award letter, bank statement, statement letter from [facility], child support statement, IRS 1040 or W2 form, or a statement from the person who financially supports you stating they help provide for your basic needs), 2) proof of residency (drivers license, a piece of mail showing your address, a statement from person you live with verifying you live at their address), 3) photo ID, 4) your insurance card 5) if you do not have insurance but have applied for Medicaid, please bring verification you have applied. The above appointment(s) reflects first availability. You may contact the office regularly to check for cancellations that may allow you to be seen sooner.) Jesusita Bearden [Advanced Practice Nurse] - 02/27/18 4:30 pm (The above appointment is with Jesusita Bearden CNP, at Primary Care within [facility]. This appointment is to establish you with a primary care provider. Your needs for medication will be assessed and treated as indicated as well. Please arrive 15 minutes early to complete paperwork. Please bring your insurance card, photo ID and list of current medications to your first appointment. The above appointment(s) reflects first availability. You may contact the office regularly to check for cancellations that may allow you to be seen sooner.) Functional capacity at discharge: independent ambulation Overall status at discharge: Stable Disposition: Home, Self-Care Quality - Multiple Antipsychotics Patient discharged on 2 or more antipsychotic medications: No Procedures - Procedures Procedures: Medication Management, Crisis Stabilization, Supportive Therapy, Group Therapy, Psychoeducational Therapy
== END 2018-01-31 13:15 | disposition home or self-care (01) | DRG 753 ==
LOC: EMEROOARM 21:15 → 1ANU 01-29 00:57
PROVIDERS: ADMIT Psychiatry & Neurology Psychiatry; ATTEND Psychiatry & Neurology Psychiatry